=== PATIENT | female | born 1945 | race Caucasian/White ===

== ENCOUNTER → 2016-08-15 | Outpatient (CLI) | payer MEDICARE, BC ==
[~2016-08-15] MED LIST: AMLO5TAB4 PO; AMOX500C2 PO; ASPI-999 PO; CLON0.1T PO; INSU100V6 SQ; LEVO75TA PO; LOSA100T28 PO; MAG30ORA2 PO; METF500T4 PO; OMEG500C PO; OMEP40CA36 PO; POTA20TA15 PO; RED600CA2 PO; ROPI1TAB2 PO; SUCR1ORA5 PO; ZOLP10TA PO
--- NOTE | 2016-08-15 13:42 | Diagnostic Imaging Report ---
Bilateral screening mammogram. The current study was also evaluated with a Computer Aided Detection (CAD) system. INDICATION: Screening. No current complaints stated on the questionnaire. COMPARISON: 07/09/15 FINDINGS: The breasts are composed of scattered fibroglandular densities. Scattered benign-appearing calcifications are noted. There is a stable circumscribed nodule in the central aspect of the left breast previously demonstrated to be a simple cyst on ultrasound. Allowing for technique and positional differences, no suspicious change is seen. IMPRESSION: No significant change. ACR BI-RADS Category 2: Benign findings. Result letter will be mailed to the patient. Note: At least 10% of breast cancer is not imaged by mammography. Dictated by: Dictated on workstation # [id number]
== END | disposition home or self-care (01) ==
LOC: RAD 09:37
PROVIDERS: ATTEND Physician Assistant Medical
DX: Z12.31 Encounter for screening mammogram for malignant neoplasm of breast (principal)
CPT/HCPCS: 77067

== ENCOUNTER → 2019-01-16 | Outpatient (CLI) | payer MEDICARE, BC ==
[~2019-01-16] MED LIST changes: -LOSA100T28 PO; +LOSA100T57 PO; +METF-397 PO; -METF500T4 PO
== END ==
LOC: CARD 13:18
PROVIDERS: ATTEND Internal Medicine Cardiovascular Disease
DX: I25.10 Atherosclerotic heart disease of native coronary artery without angina pectoris (principal); E78.2 Mixed hyperlipidemia; I10 Essential (primary) hypertension; E11.9 Type 2 diabetes mellitus without complications
CPT/HCPCS: 93306

== ENCOUNTER → 2019-01-21 | Outpatient (CLI) | payer MEDICARE, BC ==
[~2019-01-21] VITALS: Ht 152 cm; Wt 73.0 kg
[~2019-01-21] MED LIST changes: +CATHETER FLUSH 10 ML SYR IV PRN; +REGADENOSON 0.4 MG/5 ML SYR (LEXISCAN) IV ONE; +meTOprolol 5 MG/5 ML (LOPRESSOR) VIAL IV ONE; +meTOprolol 5 MG/5 ML (LOPRESSOR) VIAL ONE
[2019-01-21 09:19] VITALS: BP 186/68
--- NOTE | 2019-01-21 12:25 | STRESS TEST ---
DATE OF SERVICE: LEXISCAN MYOVIEW STRESS TEST REPORT REFERRING PHYSICIAN: TAMMY Nassar, [facility]. Baseline heart rate is 109. Baseline blood pressure is 186/68. Baseline EKG is sinus rhythm with occasional PVCs. In summary, the patient received 10.84 mCi of technetium-99 Myoview and the resting images were obtained. Then, the patient received 0.4 mg of Lexiscan followed by 30.8 mCi of technetium-99 Myoview. Throughout the test, there were no EKG changes. The resting and stress images were reviewed and compared in the short axis, horizontal long axis, and vertical long axis views. Review of the images showed decreased uptake involving the mid to apical inferior wall and inferolateral wall with mild reversibility. SSS is 5, SDS 3, TID value 1.2. On the gated images, the left ventricle appeared to be normal size with normal contractility. Calculated ejection fraction 66%. CONCLUSION: 1. The patient tolerated Lexiscan well. 2. Reversible ischemia involving the mid to apical inferior wall and inferolateral wall. 3. Transient ischemic dilatation with TID value 1.2. 4. Normal left ventricular size with normal contractility. Calculated ejection fraction 66%. Job ID: [id number] DocumentID: [id number] Dictated Date: 01/21/2019 11:47:24 Salvage Cutter Date: 01/21/2019 12:25:09 Dictated By: MARGRET SIEGEL MD
== END ==
LOC: CARD 07:22
PROVIDERS: ATTEND Internal Medicine Cardiovascular Disease
DX: I25.10 Atherosclerotic heart disease of native coronary artery without angina pectoris (principal); I25.9 Chronic ischemic heart disease, unspecified; I10 Essential (primary) hypertension; E11.9 Type 2 diabetes mellitus without complications; E78.2 Mixed hyperlipidemia
CPT/HCPCS: 78452; 93017

== ENCOUNTER 2019-02-06 06:46 | Day surgery (SDC) | payer MEDICARE, BC ==
[2019-02-06] VITALS (9 sets, daily range): BP systolic 114–142; BP diastolic 57–76
[~2019-02-06] VITALS: Ht 152 cm; Wt 161.0 kg
[~2019-02-06 06:46] MED LIST changes: -CATHETER FLUSH 10 ML SYR IV PRN; -REGADENOSON 0.4 MG/5 ML SYR (LEXISCAN) IV ONE; -meTOprolol 5 MG/5 ML (LOPRESSOR) VIAL IV ONE; -meTOprolol 5 MG/5 ML (LOPRESSOR) VIAL ONE
[2019-02-06] MEDS ORDERED: LIDOCAINE 1% INJ 20 ML 20 ML VIAL ONE (06:53)
[2019-02-06] MEDS ORDERED: HEParin (CATH LAB) 2,000 ML IV ONE (06:53)
[2019-02-06] MEDS ORDERED: NS IV 1000 ML 1,000 ML IV SCH ×2 (07:00→09:37)
[2019-02-06 07:18] LABS: HEMOGLOBIN 12.6 G/DL (11.5-16.0); MEAN PLATELET VOLUME 13.1 FL (7.4-10.4); RED CELL DISTRIBUTION WIDTH 15.6 % (10.0-14.5); WHITE BLOOD COUNT 8.9 10^3/uL (4.3-11.0)
[2019-02-06 07:19] LABS: BILIRUBIN,URINE NEGATIVE (NEGATIVE); CLARITY,URINE CLEAR; COLOR,URINE YELLOW; GLUCOSE, URINE (UA) NEGATIVE (NEGATIVE); KETONES,URINE NEGATIVE (NEGATIVE); LEUKOCYTE ESTERASE ,URINE TRACE (NEGATIVE); NITRITE,URINE NEGATIVE (NEGATIVE); PH,URINE 5.5 (5-9); PROTEIN,URINE NEGATIVE (NEGATIVE)
[2019-02-06 07:31] LABS: PROTHROMBIN TIME PATIENT 13.6 SEC (12.2-14.7)
[2019-02-06 07:33] LABS: BACTERIA,URINE FEW /HPF
[2019-02-06 07:35] LABS: BUN/CREATININE RATIO 13; CARBON DIOXIDE 20 MMOL/L (21-32); CHLORIDE 108 MMOL/L (98-107); CREATININE SERUM 1.09 MG/DL (0.60-1.30); GFR ESTIMATED 49; POTASSIUM 3.8 MMOL/L (3.6-5.0); SODIUM 143 MMOL/L (135-145)
[2019-02-06 07:36] LABS: ALANINE AMINOTRANSFERASE 18 U/L (0-55); ALBUMIN 4.7 GM/DL (3.2-4.5); ALKALINE PHOSPHATASE 95 U/L (40-136); BILIRUBIN,TOTAL 0.6 MG/DL (0.1-1.0); CALCIUM 10.6 MG/DL (8.5-10.1); CHOLESTEROL 131 MG/DL (< 200); GLUCOSE 173 MG/DL (70-105); HDL CHOLESTEROL 34 MG/DL (40-60); TOTAL PROTEIN 8.1 GM/DL (6.4-8.2); TRIGLYCERIDES 178 MG/DL (<150); VLDL CHOLESTEROL 36 MG/DL (5-40)
--- NOTE | 2019-02-06 07:48 | Cardiac Procedure Note-CS/ASA ---
Pre-Procedure Note Pre-Op Procedure Note H&P Reviewed The H&P was reviewed, patient examined and no changes noted. Date H&P Reviewed: Feb 06, 2019 Time H&P Reviewed: 07:48 Conscious Sedation Pre-Proced Time 07:48 ASA Score 3 For ASA 3 and 4: Consider anesthesia and medical clearance. Also, for patients with a history of failed moderate sedation consider anesthesia. Airway Lungs Heart ASA score ASA 1: a normal healthy patient ASA 2: a patient with a mild systemic disease (mid diabetes, controlled hypertension, obesity x ASA 3: a patient with a severe systemic disease that limits activity (angina, COPD, prior Myocardial infarction) ASA 4: a patient with an incapacitating disease that is a constant threat to life (CHF, renal failure) ASA 5: a moribund patient not expected to survive 24 hrs. (ruptured aneurysm) ASA 6: a declared brain- patient whose organs are being harvested. For emergent operations, add the letter E after the classification Mallampati Classification Grade 3 Sedation Plan Analgesia, Amnesia, Plan communicated to team members, Discussed options with patient/fam, Discussed risks with patient/fam The patient is an appropriate candidate to undergo the planned procedure, sedation, and anesthesia. The patient immediately re-assessed prior to indication. MARGRET SIEGEL MD Feb 06, 2019 07:48 POS
[2019-02-06] MEDS ORDERED: RANI-324 PO (08:07)
[2019-02-06] MEDS ORDERED: ATOR10TA PO (08:07)
[2019-02-06] MEDS ORDERED: CLON0.1T PO (08:07)
[2019-02-06] MEDS ORDERED: NF-OLOP5ML OU (08:12)
[2019-02-06] MEDS ORDERED: LOSA100T57 PO (08:14)
[2019-02-06] MEDS ORDERED: AMLO10TA7 PO (08:14)
[2019-02-06] MEDS ORDERED: METO50TA15 PO ×2 (08:14)
--- NOTE | 2019-02-06 08:16 | Diagnostic Imaging Report ---
INDICATION: History of coronary disease, hypertension, diabetes. Evaluation prior to heart catheterization. TECHNIQUE: Single view chest 7:45 AM. CORRELATION STUDY: 01/21/2015 FINDINGS: Heart size upper limits normal. Vasculature within normal limits. The lungs are clear with no consolidating infiltrate. There is no significant effusion or pneumothorax. IMPRESSION: 1. Stable, borderline heart size. Negative for acute abnormality of the chest. Dictated by: Dictated on workstation # [id number]
[2019-02-06] MEDS ORDERED: CALC-880 PO (08:18)
[2019-02-06] MEDS ORDERED: MIDAZOLAM 5 MG/5 ML (VERSED) VIAL ONE (08:43)
[2019-02-06] MEDS ORDERED: fentaNYL INJECTION 100 MCG/2 ML AMP ONE ×2 (08:43→09:10)
[2019-02-06] MEDS ORDERED: MIDAZOLAM 2 MG/2 ML (VERSED) VIAL ONE (09:10)
[2019-02-06] MEDS ORDERED: TIZA4TAB4 PO (09:11)
[2019-02-06] MEDS ORDERED: ADENOSINE 3 MG/1 ML (ADENOSCAN) 30ML VIAL IV ONE (09:15)
[2019-02-06] MEDS ORDERED: HEParin 1000 UNIT/ML (10ML VIAL) FOR BOLUS ONE (09:15)
--- NOTE | 2019-02-06 09:16 | NUR ---
SPOKE WITH PT WELL CALLING [facility] AND [facility] MAIL ORDER TO COMPELTE THE MED REC. THE PT DID NOT HAVE HER MEDS AND HAD AN OLDER MED LIST, SHE WAS UNSURE OF HER MEDICATIONS. I COMPLIED THE INFORMATION WITH WHAT [facility] AND [facility] HAS ON FILE TO COMPLETE THE MED REC ACCURATELY POSSIBLE. LANTUS: RX FROM [facility] SAYS " 15 UNITS BID" HOWEVER THE PT SAYS SHE TAKES 10 UNITS BID. METOPROLOL TART: RX FROM [facility] SAYS " 1 TAB TID" HOWEVER THEN PT TAKES 2 AM AND 1 HS PT HAS CLONIDINE ON HER MED LIST, SHE SAYS SHE TAKES IT PRN WHEN HER BLOOD PRESSURE GETS TO HIGH. NEITHER OF HER PHARMACIES HAVE FILLED THIS IN THE LAST YEAR, FOR THAT REASON I HAVE LEFT IT OFF THE MED REC. PT ALSO HAS RED YEAST RICE AND FISH OIL LISTED, HOWEVER SHE SAID SHE HAS NOT TAKEN THESE IN A COUPLE MONTHS- DUE TO THAT I HAVE THEM OFF THE MED REC. SHE SAYS SHE NO LONGER TAKES ROPINIROLE THE FOLLOWING ARE FILL DATES FROM [facility]: 08-28-2018 OLOPATADINE DROPS #1 BOTTLE 11-12-2018 ATORVASTATIN #90/90DS 11-27-2018 METOPROLOL TART #270/90DS 12-10-2018 LEVOTHYROXINE #90/960DS 12-10-2018 POTASSIUM #90/90DS 01-15-2019 AMLODIPINE #90/90DS 01-15-2019 LOSARTAN #90/90DS 01-17-2019 LATNUS VIAL #3/84DS 02-05-2019 METFORMIN #180/90DS 11-23-2018 TIZANIDINE #20 (THIS WAS FILLED AT [facility]) OTC MEDS: ASPIRIN RANITIDINE
[2019-02-06] MEDS ORDERED: METF-397 PO (09:42)
--- NOTE | 2019-02-06 09:43 | Discharge Inst-Post CATH ---
Discharge Inst-CATH/EP Problems Reviewed?: Yes Post Cardiac Cath/EP D/C Inst Follow Up/Plan Hold metformin for [address] SIEGEL's office in 2-4 weeks <b>CARDIAC CATH/EP PROCEDURE DISCHARGE INSTRUCTIONS</b> ACTIVITY * Go Home directly and rest. * Limit activity of the leg (or wrist if it was used) for 7 days including aerobics, swimming, jogging, bicycling, etc. * Restrict stair-climbing for 7 days if possible, if not, climb up with your non-cath leg, then bring together on the same step. * Avoid lifting, pushing, pulling or excessive movement of the affected extremity for 7 days. * Customary sexual activity may be resumed after 2 days-use caution not to use a position that strains or causes pain to the affected extremity. * No driving for 24 hours. * NO SMOKING. * Avoid straining for bowel movements for 7 days. * Gentle walking on level ground is allowed. * Returning to work will depend on the type of procedure and the results. Your doctor will discuss this with you. CALL YOUR DOCTOR FOR ANY OF THE FOLLOWING: *If bleeding from the puncture site occurs- Apply gentle pressure to site with clean cloth and call your doctor or EMS. * If a knot or lump forms under the skin, increases in size, or causes pain. * If bruising appears to be worsening or moving further down your leg instead of disappearing. * Temperature above 101 F. CARE OF YOUR GROIN INCISION; * Bruising or purple discoloration of the skin near the puncture site is common. * You may shower only, no bathtub bathing for 5 days. Be careful to avoid slipping as your leg may feel stiff. * If a closure device was used on your femoral artery, please see the attached guide regarding care of the device and your leg. * Leave dressing on FOR 24 hours. CARE OF YOUR WRIST INCISION; * Bruising or purple discoloration of the skin near the puncture site is common. * You may shower. * DO NOT submerge wrist. * Leave dressing on FOR 24 hours. MARGRET SIEGEL MD Feb 06, 2019 09:43 POS
[2019-02-06] MEDS ORDERED: PATIENT MAY USE OWN MEDS, ALL PO SCH (09:45)
--- NOTE | 2019-02-06 09:48 | Cardiac Cath Report ---
Cardiac Cath Report Physician (s)/Staff Cytotechnologist (s) Physician MARGRET SEIGEL MD Pre-Procedure Diagnosis Pre-Procedure Diagnosis: Coronary artery disease Post-Procedure Note Procedure Start Date: Feb 06, 2019 Name of Procedure: Left heart catheterization FFR to the LAD Findings/Procedure Note PROCEDURE NOTE: 73-year-old lady with history of diabetes mellitus, hypertension, hyperlipidemia, had an abnormal stress test, she was scheduled for cardiac catheterization possible PTCA. After explaining the procedure to the patient, all pros and cons were explained, all questions were answered. The patient signed the consent and then she was placed on the cardiac catheterization laboratory. Groin was prepped SL fashion local anesthesia was used. Sheath placed in the Right femoral artery. Kings right and left catheter were used to access the coronary system. Pigtail was used to access the left ventricular cavity. Left ventriculogram was not done Patient was given 3000 units of heparin, FL guide was advanced and left coronary system, had the lesion appeared to be 60-70 percent. FFR was measured at baseline and it was 0.92, given adenosine challenge over 2 minutes FFR was 0.81 at the end. Wire was removed, At the end of the procedure the sheath was removed. Closure device was used FINDINGS: Hemodynamics LV 91/22, end-diastolic pressure of 22 Aorta 105/58 mean of 52 ANATOMY: Left Main is free of obstructive disease Left Anterior Descending is small to moderate in size, 60-70 percent stenosis at the mid LAD, FFR was 0.81 after adenosine challenge, the lesion is deemed to be intermediate Left Circumflex is moderate in size with no obstructive disease Right Coronory Artery is dominant artery with moderate disease LV Gram was not done, pressure was measured CONCLUSION: 1. Borderline stenosis at the mid LAD 60-70 percent, FFR is 0.81 after rosio nosine challenge, due to the fact that the artery is about 2-2.25 mm in diameter I decided to continue with conservative management 2. Otherwise mild coronary artery disease 3. Elevated left ventricular end-diastolic pressure DISCUSSION AND RECOMMENDATION: continue to maximize medical therapy no intervention is needed Anesthesia Type: Conscious Sedation Estimated blood loss (mL): 15 ml Contrast Amount: 90 ml Total Radiation Dose: 678 mGy Post-Procedure Diagnosis Post-operative diagnosis: Coronary artery disease Hypertension Hyperlipidemia Diabetes mellitus MARGRET SIEGEL MD Feb 06, 2019 09:48 POS
== END 2019-02-06 14:45 | disposition home or self-care (01) ==
LOC: CATH 06:46
PROVIDERS: ATTEND Internal Medicine Cardiovascular Disease
DX: I25.10 Atherosclerotic heart disease of native coronary artery without angina pectoris (principal); I10 Essential (primary) hypertension; E11.9 Type 2 diabetes mellitus without complications; E78.2 Mixed hyperlipidemia; E66.9 Obesity, unspecified; I65.29 Occlusion and stenosis of unspecified carotid artery; Z88.5 Allergy status to narcotic agent; Z91.048 Other nonmedicinal substance allergy status; Z79.84 Long term (current) use of oral hypoglycemic drugs; Z79.82 Long term (current) use of aspirin; Z79.899 Other long term (current) drug therapy; Z87.891 Personal history of nicotine dependence; Z68.32 Body mass index [BMI] 32.0-32.9, adult; Z80.9 Family history of malignant neoplasm, unspecified; Z83.3 Family history of diabetes mellitus; Z82.49 Family history of ischemic heart disease and other diseases of the circulatory system
CPT/HCPCS: 36415; 71045; 80053; 80061; 81000; 85027; 85347; 85610; 85730; 87077; 87081; 87088; 93458

== ENCOUNTER 2019-03-02 07:25 | Observation (INO) | payer MEDICARE, BC ==
[~2019-03-02] VITALS: Ht 152.4 cm; Wt 72.0 kg
[~2019-03-02 07:25] MED LIST changes: +AMLO10TA7 PO; +ATOR10TA PO; +CALC-880 PO; +METO50TA15 PO; +NF-OLOP5ML OU; +RANI-324 PO; +TIZA4TAB4 PO
[2019-03-02] MEDS ORDERED: ASPIRIN 81 MG CHEW (CHILDREN'S ASA) PO ONE (07:45)
--- NOTE | 2019-03-02 07:49 | ED Chest Pain ---
General Stated Complaint: CHEST PAIN Source: patient, family Exam Limitations: no limitations History of Present Illness Date Seen by Provider: Mar 02, 2019 Time Seen by Provider: 07:32 Initial Comments Patient resents to ER by private conveyance with significant other and chief complaint of chest pain that is intermittently been going on since the , 6 days ago. Prior to that she had had a routine stress test done given her history of risk factors of hypertension, hyperlipidemia and diabetes. She has no prior history of coronary disease or stents. Her stress test demonstrated some abnormal findings and she was given a heart catheter last week by Dr. Gray which she says they did not put a stent in her. She says this chest pain woke her up from sleep about 3:00 in the morning and has not gone away. It's in her epigastric region and across the top of her chest radiating from left to right and towards her back. She says it feels like burning. She has a history of acid reflux. She did not take anything for it but she has taken her morning meds which include 81 mg of aspirin. She is not on blood thinner. No history of COPD, asthma, coughing, fevers or chills. No pain on deep inspiration. Allergies and Home Medications Allergies Coded Allergies: codeine (Unverified Allergy, Unknown, 01/21/15) Uncoded Allergies: TAPE (Adverse Reaction, Unknown, 01/21/15) Home Medications Amlodipine Besylate 10 Mg Tablet, 10 MG PO DAILY, (Reported) Aspirin 81 Mg Tab.chew, 81 MG PO DAILY, (Reported) Atorvastatin Calcium 10 Mg Tablet, 10 MG PO DAILY, (Reported) Calcium Carbonate/Vitamin D3 1 Each Tablet, 1 EACH PO DAILY, (Reported) Insulin Glargine,Hum.rec.anlog 100 Unit/1 Ml Vial, 10 UNIT SQ BID, (Reported) Levothyroxine Sodium 75 Mcg Tablet, 75 MCG PO DAILY, (Reported) Losartan Potassium 100 Mg Tablet, 100 MG PO DAILY, (Reported) Metformin HCl 500 Mg Tablet, 500 MG PO BID hold metformin for 48 hours Prescribed by: MARGRET GRAY on 02/06/19 0942 Metoprolol Tartrate 50 Mg Tablet, 100 MG PO DAILY, (Reported) TAKES 2 (50MG) TABS TO EQUAL 100MG Metoprolol Tartrate 50 Mg Tablet, 50 MG PO HS, (Reported) Olopatadine 5 Ml Drops, 1 DROP OU DAILY, (Reported) Potassium Chloride 20 Meq Tab.er.prt, 20 MEQ PO DAILY, (Reported) Ranitidine HCl 75 Mg Tablet, 75 MG PO DAILY PRN for HEARTBURN, (Reported) Tizanidine HCl 4 Mg Tablet, 4 MG PO Q8H PRN for MUSCLE SPASMS, (Reported) Patient Home Medication List Home Medication List Reviewed: Yes Review of Systems Review of Systems Constitutional: No chills, No dizziness, No malaise EENTM: No Blurred Vision, No Double Vision Respiratory: Denies Cough, Denies Shortness of Air Cardiovascular: Denies Chest Pain, Denies Edema Gastrointestinal: Denies Constipated, Denies Diarrhea, Denies Nausea Genitourinary: Denies Burning, Denies Discharge Musculoskeletal: No back pain, No joint pain Skin: No dryness, No lesions Psychiatric/Neurological: Denies Depressed, Denies Headache, Denies Numbness All Other Systems Reviewed Negative Unless Noted: Yes Past Ldbcbov-Scmrib-Waqhpq Hx Patient Social History Alcohol Use: Denies Use Recreational Drug Use: No Smoking Status: Never a Smoker Recent Foreign Travel: No Contact w/Someone Who Travel: No Immunizations Up To Date Date of Pneumonia Vaccine: Dec 07, 2016 Past Medical History Adenoidectomy, Appendectomy, Gallbladder, Hysterectomy, Oophorectomy, Orthopedic, Tonsillectomy Respiratory: Yes Pneumonia Currently Using CPAP: No Currently Using BIPAP: No Cardiac: Yes (CAROTID DISEASE, SVT) Chronic Edema/Swelling, High Cholesterol, Hypertension Neurological: Yes Neuropathy, Stroke TEAM DRIVER History: Hysterectomy Genitourinary: Yes Gastrointestinal: Yes Gastroesophageal Reflux, Irritable Bowel Arthritis, Rheumatoid Arthritis, Chronic Back Pain Hypothyroidsim, Diabetes, Non-Insulin dep Cancer: No Sleep Difficulties Blood Disorders: No Physical Exam Vital Signs Vital Signs - First Documented 03/02/19 07:25 Pulse 60 Resp 18 B/P (MAP) 145/90 (108) Pulse Ox 96 O2 Delivery Room Air Capillary Refill : Height, Weight, BMI Height: 5'0" Weight: 146lbs. 6oz. 66.255606hk; 69.68 BMI Method:Stated General Appearance: No Apparent Distress, WD/WN, Anxious HEENT: PERRL/EOMI, Pharynx Normal, Moist Mucous Membranes Neck: Full Range of Motion, Normal Inspection Respiratory: Lungs Clear, Normal Breath Sounds, No Accessory Muscle Use, No Respiratory Distress Cardiovascular: Regular Rate, Rhythm, No JVD, Normal Peripheral Pulses Gastrointestinal: Normal Bowel Sounds, Non Tender, Soft Extremity: Normal Capillary Refill, Normal Inspection, Normal Range of Motion Neurologic/Psychiatric: Alert, Oriented x3 Skin: Normal Color, Warm/Dry Progress/Results/Core Measures Results/Orders Lab Results Laboratory Tests Test 03/02/19 07:50 03/02/19 10:53 Range/Units White Blood Count 9.3 4.3-11.0 10^3/uL Red Blood Count 4.87 4.35-5.85 10^6/uL Hemoglobin 13.0 11.5-16.0 G/DL Hematocrit 41 35-52 % Mean Corpuscular Volume 83 80-99 FL Mean Corpuscular Hemoglobin 27 25-34 PG Mean Corpuscular Hemoglobin Concent 32 32-36 G/DL Red Cell Distribution Width 15.2 H 10.0-14.5 % Platelet Count 196 130-400 10^3/uL Mean Platelet Volume 13.2 H 7.4-10.4 FL Neutrophils (%) (Auto) 62 42-75 % Lymphocytes (%) (Auto) 29 12-44 % Monocytes (%) (Auto) 6 0-12 % Eosinophils (%) (Auto) 2 0-10 % Basophils (%) (Auto) 0 0-10 % Neutrophils # (Auto) 5.7 1.8-7.8 X 10^3 Lymphocytes # (Auto) 2.7 1.0-4.0 X 10^3 Monocytes # (Auto) 0.6 0.0-1.0 X 10^3 Eosinophils # (Auto) 0.2 0.0-0.3 10^3/uL Basophils # (Auto) 0.0 0.0-0.1 10^3/uL Prothrombin Time 13.1 12.2-14.7 SEC INR Comment 1.0 0.8-1.4 Activated Partial Thromboplast Time 39 H 24-35 SEC Sodium Level 142 135-145 MMOL/L Potassium Level 4.2 3.6-5.0 MMOL/L Chloride Level 106 98-107 MMOL/L Carbon Dioxide Level 22 21-32 MMOL/L Anion Gap 14 5-14 MMOL/L Blood Urea Nitrogen 17 7-18 MG/DL Creatinine 1.16 0.60-1.30 MG/DL Estimat Glomerular Filtration Rate 46 BUN/Creatinine Ratio 15 Glucose Level 160 H 70-105 MG/DL Calcium Level 12.3 H 8.5-10.1 MG/DL Corrected Calcium 8.5-10.1 MG/DL Magnesium Level 1.7 1.6-2.4 MG/DL Total Bilirubin 0.5 0.1-1.0 MG/DL Aspartate Amino Transf (AST/SGOT) 21 5-34 U/L Alanine Aminotransferase (ALT/SGPT) 20 0-55 U/L Alkaline Phosphatase 94 40-136 U/L Myoglobin 37.4 10.0-92.0 NG/ML Troponin I < 0.028 < 0.028 <0.028 NG/ML B-Type Natriuretic Peptide 81.3 <100.0 PG/ML Total Protein 8.6 H 6.4-8.2 GM/DL Albumin 4.9 H 3.2-4.5 GM/DL My Orders Orders - SARAH FANG Aspirin Chewable Tablet (Baby Aspirin Ch (03/02/19 07:45) Nitroglycerin 0.4 Mg Btl 25's (Nitrostat (03/02/19 07:45) BNP (03/02/19 07:52) Troponin I (03/02/19 10:50) Lidocaine 2% Viscous 15 Ml (Xylocaine Vi (03/02/19 10:00) Famotidine Tablet (Pepcid Tablet) (03/02/19 09:56) Antacid Suspension (Mylanta Suspension (03/02/19 10:00) Medications Given in ED Current Medications Medications Dose Ordered Sig/Grabiel Route Start Time Stop Time Status Last Admin Dose Admin Al Hydrox/Mg Hydrox/Simethicone 30 ml ONCE ONCE PO 03/02/19 10:00 03/02/19 10:01 DC 03/02/19 10:12 30 ML Aspirin 243 mg ONCE ONCE PO 03/02/19 07:45 03/02/19 07:46 DC 03/02/19 07:57 243 MG Lidocaine HCl 15 ml ONCE ONCE PO 03/02/19 10:00 03/02/19 10:01 DC 03/02/19 10:12 15 ML Nitroglycerin 0.4 mg NEEDED PRN SL 03/02/19 07:45 03/02/19 10:53 0.4 MG Vital Signs/I&O 03/02/19 07:25 Pulse 60 Resp 18 B/P (MAP) 145/90 (108) Pulse Ox 96 O2 Delivery Room Air Progress Progress Note #1: Time: 07:47 Progress Note We'll give her 243 mg of aspirin in addition to the one tablet she already took. We'll trial nitroglycerin. EKG initially is unremarkable. If nitroglycerin is unhelpful we'll try a GI cocktail as this seems more likely to be GERD. Cardiac catheterization February 06, [address] Gray: Borderline stenosis in the mid LAD 60-70%. Otherwise mild coronary artery disease. Elevated left ventricular end diastolic pressure. Echocardiogram January 16, [address] Gray: EF 55-65% with grade 1 diastolic dysfunction. Progress Note #2: Time: 09:39 Progress Note Heart score 5 points. Pain came back so we gave her a GI cocktail. This helped for a while. Progress Note #3: Time: 13:00 Progress Note Her pain returned to twice what was initially she says 18 out of 10. We gave her another nitroglycerin pill and it lasted for about 15-20 minutes and then her pain has returned. Plan to put Nitropaste on her and observe her. Initial ECG Impression Date: Mar 02, 2019 Initial ECG Impression Time: 07:36 Initial ECG Rate: 62 Initial ECG Rhythm: Normal Sinus Initial ECG Intervals: Normal Initial ECG Impression: Normal, Nonspecific Changes Comment No clinically relevant ST elevation or depression normal sinus rhythm Diagnostic Imaging Diagonstic Imaging: Xray Plain Films/CT/US/NM/MRI: chest (1v) Comments NAME: DAJA RENAE [facility] REC#: [id number] PT STATUS: REG ER : 1945 PHYSICIAN: TAMIKA WAGNER MD ADMIT DATE: 03/02/19/ER Draft Date of Exam:03/02/19 CHEST 1 VIEW, AP/PA ONLY EXAM: CHEST 1 VIEW, AP/PA ONLY INDICATION: Coronary artery disease. COMPARISON: 02/06/2019. FINDINGS: Normal heart size and pulmonary vascularity. No dense consolidation, pleural effusion or pneumothorax. No acute osseous findings. No significant change. IMPRESSION: No acute cardiopulmonary findings. Dictated on workstation # [id number] Dict: 03/02/19819 Trans: 03/02/1930 [facility] [id number] Interpreted by: SEBAS LOUIS MD Electronically signed by: Reviewed: Reviewed by Me Consults : Consulting Physician: Brittney ROSAS MD Consults Notes [id number]: Discussed case with Dr. Rosas and he says given the recent cardiac catheterization and her response to nitroglycerin he would monitor her and repeat a 3 hour troponin. If it's negative we may consider sending her out if it's positive then we'll keep her. Departure Communication (Admissions) Time/Spoke to Admitting Phy: 12:50 Discussed the case with Dr. Quiñonez and he agrees to observe the patient. He agrees with nitroglycerin paste and placement in cardiac stepdown. Time/Spoke to Consulting Phy: 12:50 Discussed case lab imaging EKG with Dr. Rosas and he agrees to consult on the patient. Impression Primary Impression: Acute coronary syndrome without high troponin Disposition: ADMITTED INPATIENT Condition: Stable Admissions Decision to Admit Reason: Admit from ER (General) Decision to Admit/Date: Mar 02, 2019 Time/Decision to Admit Time: 12:45 Departure-Patient Inst. Referrals: NO,LOCAL PHYSICIAN (PCP/Family) Primary Care Physician SARAH FANG Mar 02, 2019 07:49
[2019-03-02] MEDS: NITROGLYCERIN 0.4 MG SL TABS BTL 25'S SL PRN ×2 (07:57→10:53)
[2019-03-02 08:19] LABS: BASOPHILS % (AUTO) 0 % (0-10); EOSINOPHILS # (AUTO) 0.2 10^3/uL (0.0-0.3); EOSINOPHILS % (AUTO) 2 % (0-10); HEMATOCRIT 41 % (35-52); LYMPHOCYTES # (AUTO) 2.7 X 10^3 (1.0-4.0); LYMPHOCYTES % (AUTO) 29 % (12-44); MEAN CORPUSCULAR HEMOGLOBIN 27 PG (25-34); MEAN CORPUSCULAR HGB CONC 32 G/DL (32-36); MEAN CORPUSCULAR VOLUME 83 FL (80-99); MEAN PLATELET VOLUME 13.2 FL (7.4-10.4); MONOCYTES # (AUTO) 0.6 X 10^3 (0.0-1.0); MONOCYTES % (AUTO) 6 % (0-12); NEUTROPHILS # (AUTO) 5.7 X 10^3 (1.8-7.8); NEUTROPHILS % (AUTO) 62 % (42-75); PLATELET COUNT 196 10^3/uL (130-400); RED CELL DISTRIBUTION WIDTH 15.2 % (10.0-14.5); WHITE BLOOD COUNT 9.3 10^3/uL (4.3-11.0)
[2019-03-02 08:30] LABS: PROTHROMBIN TIME PATIENT 13.1 SEC (12.2-14.7)
--- NOTE | 2019-03-02 08:30 | Diagnostic Imaging Report ---
EXAM: CHEST 1 VIEW, AP/PA ONLY INDICATION: Coronary artery disease. COMPARISON: 02/06/2019. FINDINGS: Normal heart size and pulmonary vascularity. No dense consolidation, pleural effusion or pneumothorax. No acute osseous findings. No significant change. IMPRESSION: No acute cardiopulmonary findings. Dictated by: Dictated on workstation # [id number]
[2019-03-02 08:38] LABS: ALANINE AMINOTRANSFERASE 20 U/L (0-55); ALBUMIN 4.9 GM/DL (3.2-4.5); ALKALINE PHOSPHATASE 94 U/L (40-136); BILIRUBIN,TOTAL 0.5 MG/DL (0.1-1.0); BUN/CREATININE RATIO 15; CALCIUM 12.3 MG/DL (8.5-10.1); CARBON DIOXIDE 22 MMOL/L (21-32); CHLORIDE 106 MMOL/L (98-107); CREATININE SERUM 1.16 MG/DL (0.60-1.30); GFR ESTIMATED 46; GLUCOSE 160 MG/DL (70-105); MAGNESIUM 1.7 MG/DL (1.6-2.4); POTASSIUM 4.2 MMOL/L (3.6-5.0); SODIUM 142 MMOL/L (135-145); TOTAL PROTEIN 8.6 GM/DL (6.4-8.2)
[2019-03-02] MEDS ORDERED: FAMOTIDINE 20 MG (PEPCID) TABLET PO STA (09:56)
[2019-03-02] MEDS ORDERED: LIDOCAINE 2% VISCOUS 15 ML UDC PO ONE (10:00)
[2019-03-02] MEDS ORDERED: ANTACID SUSP 30 ML UDC (MYLANTA) PO ONE (10:00)
--- NOTE | 2019-03-02 10:53 | NUR ---
2ND NITRO GIVEN PATIENT REPORTS PAIN WENT AWAY FOR AWHILE AFTER GI COCKTAIL. NOW IT BACK
--- NOTE | 2019-03-02 11:15 | NUR ---
PATIENT REPORTS THAT PAIN WAS GONE FOR A SHORT WHILE ,BUT CAME BACK.
[2019-03-02] MEDS ORDERED: NITROGLYCERIN 2% OINT 1 GM UNIT DOSE PACKET TOP ONE (13:15)
--- NOTE | 2019-03-02 14:00 | Consultation-Cardiology ---
HPI-Cardiology Cardiology Consultation: Date of Consultation 03/02/19 Date of Admission Attending Physician Elaine Quiñonez MD Admitting Physician No,Local Physician Consulting Physician Brittney ROSAS MD HPI: Time Seen by a Provider: 14:00 Chief Complaint: Chest pain This is a 73-year-old lady who has history of at least moderate one-vessel CAD. She follows with Dr. Gray. She had coronary angiography done on 02/06/2019 which showed a 60-70 percent diseased segment in the mid LAD. Borderline FFR of 0.81. She presents again with complains of intermittent chest pain since 02/24/2019. Substernal. Moderate to severe intensity. No significant radiation. No exacerbating or relieving factors. She has risk factors including hypertension, hyperlipidemia and diabetes. She denies active smoking. Family history is unremarkable. She denies any shortness of breath, palpitation, syncope or near syncope. Review of Systems-Cardiology Review of Systems Constitutional: As described under HPI; No As described under HPI, No no symptoms reported, No chills, No fever, No lightheadedness Eyes: No As described under HPI, No no symptoms reported, No blindness, No blurred vision, No contact lenses, No drainage, No decreased acuity, No foreign body sensation, No pain, No vision change Ears/Nose/Throat: No As described under HPI, No no symptoms reported, No chronic hearing loss, No ear discharge, No ear pain, No nasal drainage, No ulcerations Respiratory: No no symptoms reported; As described under HPI; No As described under HPI, No cough, No orthopnea, No shortness of breath, No SOB with excertion Cardiovascular: No no symptoms reported; As described under HPI; No As described under HPI; chest pain; No edema, No irregular heart rate, No lightheadedness, No palpitations Gastrointestinal: No no symptoms reported, No As described under HPI, No abdomen distended, No abdominal pain, No blood streaked bowels, No constipation, No diarrhea, No nausea, No vomiting, No stool coloration changes Genitourinary: No As described under HPI, No burning, No dysuria, No discharge, No frequency, No flank pain, No hematuria, No urgency : Yes : No Skin: No rash, No skin related problems, No ulcerations Psychiatric/Neurological: No anxiety, No depression, No seizure, No focal weakness, No syncope Hematologic: No bleeding abnormalities All Other Systems Reviewed Negative Unless Noted: Yes RUX-[id number]-Bqztyq Hx Patient Social History Alcohol Use: Denies Use Recreational Drug Use: No Smoking Status: Never a Smoker Former smoker/When Quit: Mar 06, 1978 Recent Foreign Travel: No Recent Infectious Disease Expo: No Hospitalization with Isolation: Denies Immunizations Up To Date Date of Pneumonia Vaccine: Dec 07, 2016 Past Medical History PMH As described under Assessment. Allergies and Home Medications Allergies Coded Allergies: codeine (Unverified Allergy, Unknown, 01/21/15) Uncoded Allergies: TAPE (Adverse Reaction, Unknown, 01/21/15) Home Medications Amlodipine Besylate 10 Mg Tablet, 10 MG PO DAILY, (Reported) Aspirin 81 Mg Tab.chew, 81 MG PO DAILY, (Reported) Atorvastatin Calcium 10 Mg Tablet, 10 MG PO DAILY, (Reported) Calcium Carbonate/Vitamin D3 1 Each Tablet, 1 EACH PO DAILY, (Reported) Insulin Glargine,Hum.rec.anlog 100 Unit/1 Ml Vial, 10 UNIT SQ BID, (Reported) Levothyroxine Sodium 75 Mcg Tablet, 75 MCG PO DAILY, (Reported) Losartan Potassium 100 Mg Tablet, 100 MG PO DAILY, (Reported) Metformin HCl 500 Mg Tablet, 500 MG PO BID hold metformin for 48 hours Prescribed by: MARGRET GRAY on 02/06/19 0942 Metoprolol Tartrate 50 Mg Tablet, 100 MG PO DAILY, (Reported) TAKES 2 (50MG) TABS TO EQUAL 100MG Metoprolol Tartrate 50 Mg Tablet, 50 MG PO HS, (Reported) Olopatadine 5 Ml Drops, 1 DROP OU DAILY, (Reported) Potassium Chloride 20 Meq Tab.er.prt, 20 MEQ PO DAILY, (Reported) Ranitidine HCl 75 Mg Tablet, 75 MG PO DAILY PRN for HEARTBURN, (Reported) Tizanidine HCl 4 Mg Tablet, 4 MG PO Q8H PRN for MUSCLE SPASMS, (Reported) Patient Home Medication List Home Medication List Reviewed: Yes Physical Exam-Cardiology Physical Exam Vital Signs/I&O 03/02/19 03/02/19 07:25 13:58 Pulse 60 66 Resp 18 18 B/P (MAP) 145/90 (108) 136/71 Pulse Ox 96 95 O2 Delivery Room Air Room Air Capillary Refill : Less Than 3 Seconds Constitutional: appears stated age, AAO x 3; No apparent distress; well- developed, well-nourished HEENT: PERRL; No discharge; hearing is well preserved, oral hygience is good; No ulceration, No xanthelasmas are seen Neck: No carotid bruit; carotid pulses are 2 + bilaterally Respiratory: chest is bilaterally symmetric Cardiovascular: regular rate-rhythm, S1 and S2 Gastrointestinal: soft, audible bowel sounds; No spleenomegaly Rectal: deferred Extremities: normal range of motion, non-tender, normal inspection; No clubbing, No cyanosis; no lower extremity edema bilateral; No significant edema Neurologic/Psychiatric: no motor/sensory deficits, alert, normal mood/affect, oriented x 3, power is 5/5 both on sides Skin: normal color; No rash, No ulcerations Data Review Labs Laboratory Tests 03/02/19 07:50: White Blood Count 9.3, Red Blood Count 4.87, Hemoglobin 13.0, Hematocrit 41, Mean Corpuscular Volume 83, Mean Corpuscular Hemoglobin 27, Mean Corpuscular Hemoglobin Concent 32, Red Cell Distribution Width 15.2H, Platelet Count 196, Mean Platelet Volume 13.2H, Neutrophils (%) (Auto) 62, Lymphocytes (%) (Auto) 29, Monocytes (%) (Auto) 6, Eosinophils (%) (Auto) 2, Basophils (%) (Auto) 0, Neutrophils # (Auto) 5.7, Lymphocytes # (Auto) 2.7, Monocytes # (Auto) 0.6, Eosinophils # (Auto) 0.2, Basophils # (Auto) 0.0, Prothrombin Time 13.1, INR Comment 1.0, Activated Partial Thromboplast Time 39H, Sodium Level 142, Potassium Level 4.2, Chloride Level 106, Carbon Dioxide Level 22, Anion Gap 14, Blood Urea Nitrogen 17, Creatinine 1.16, Estimat Glomerular Filtration Rate 46, BUN/Creatinine Ratio 15, Glucose Level 160H, Calcium Level 12.3H, Corrected Calcium , Magnesium Level 1.7, Total Bilirubin 0.5, Aspartate Amino Transf (AST/SGOT) 21, Alanine Aminotransferase (ALT/SGPT) 20, Alkaline Phosphatase 94, Myoglobin 37.4, Troponin I < 0.028, B-Type Natriuretic Peptide 81.3, Total Protein 8.6H, Albumin 4.9H 03/02/19 10:53: Troponin I < 0.028 ECG Impression ECG Initial ECG Rhythm: Normal Sinus Comment LVH, IVCD A/P-Cardiology Assessment/Admission Diagnosis Unstable angina, Diabetes, Hypertension, Hyperlipidemia, CAD Plan Unstable angina, moderate to severe mid LAD stenosis with borderline FFR on 02/06/2019. Recurrent chest pain refractory to medical therapy. Troponin 2 negative. EKG does not show any acute ST-T wave abnormalities. If he continues to have recurrent chest pain, we will consider coronary angiography and possible PCI to the mid LAD. This was discussed with the patient. Diabetes, continue outpatient medical therapy. Hypertension, Hyperlipidemia, statin therapy. CAD, aspirin, statin. Recommend echocardiogram. Thank you for your consultation. Please call me if you have any questions. Joaquin Rosas MD, FACP, FACC, FSCAI, FHRS, CCDS Interventional Cardiology Cardiac Electrophysiology Vascular Medicine and Endovascular Interventions Clinical Quality Measures AMI/AHF: ASA po Prior to arrival: Yes (81 MG ) Brittney ROSAS MD Mar 02, 2019 14:00
[2019-03-02 14:10] VITALS: BP 169/78
--- NOTE | 2019-03-02 14:10 | NUR ---
DAJA RENAE admitted to room 507-1, with an admitting diagnosis of CHEST PAIN , on 03/02/19 from ER via W/C, accompanied by STAFF.DAJA RENAE introduced to surroundings, call light, bed controls, phone, TV, temperature control, lights, meal times, smoking policy, visitor policy, side rail policy, bathrooms and showers. Patient Rights given to patient in the handbook.DAJA RENAE verbalizes understanding that [facility] is not responsible for the loss or damage to any personal effects or valuables that are kept in the patients posession during their hospitalization. The following Patient Care Plans were discussed with the PT: Discharge Planning, PAIN CONTROL,IV THERAPY, and TESTS AND PROCEDURES. DAJA RENAE verbalizes understanding of Interdisciplinary Patient Education. Patient and/or family were informed about the Rapid Response Team and its purpose.
[2019-03-02 14:37] VITALS: BP 169/78
[2019-03-02 14:51] VITALS: BP 169/78
[2019-03-02] MEDS ORDERED: CALC-140 PO (15:09)
[2019-03-02] MEDS ORDERED: ASPI-983 PO (15:11)
[2019-03-02] MEDS ORDERED: CLON0.1T14 PO (15:13)
[2019-03-02] MEDS ORDERED: ONDANSETRON 4 MG/2 ML (SDV) Z0FRAN IV PRN (15:30)
[2019-03-02] MEDS ORDERED: POLYETHYLENE GLYCOL 17 GM (MIRALAX) PACK PO PRN (15:30)
[2019-03-02] MEDS ORDERED: MELATONIN 3 MG TABLET PO PRN (15:30)
[2019-03-02] MEDS ORDERED: ONDANSETRON 4 MG (ZOFRAN) ORAL DISSOLVE TAB PO PRN (15:30)
[2019-03-02] MEDS ORDERED: ACETAMINOPHEN 325 MG TABLET PO PRN (15:30)
[2019-03-02] MEDS ORDERED: BISACODYL 10 MG SUPP (DULCOLAX) PR PRN (15:30)
[2019-03-02] MEDS ORDERED: PATIENT MAY USE OWN MEDS, ALL MC SCH (15:45)
--- NOTE | 2019-03-02 15:50 | History & Physical-Hospitalist ---
History of Present Illness HPI/Chief Complaint Glendy Chadwick is a 73-year-old female with past medical history of hypertension, type II diabetes mellitus, hyperlipidemia, coronary artery disease, presented with chest pain. She reports that she has been having the p ain for at least a week. It is a left-sided chest pain which radiates to the right side of her chest. She says that it radiates to her back as well. She says the pain is worse when she lays down. She also says the pain is reproducible with touch. She reports belching. She denies diaphoresis, nausea, vomiting, and shortness of breath. Source: patient Exam Limitations: no limitations Date Seen 03/02/19 Time Seen by a Provider: 15:15 Attending Physician Elaine Pandey MD PCP No,Local Physician Referring Physician Brittney TAYLOR MD Date of Admission Mar 02, 2019 at 13:05 Home Medications & Allergies Home Medications Reviewed patient Home Medication Reconciliation performed by pharmacy medication reconciliations central supply technician supervisor and/or nursing. Patients Allergies have been reviewed. Allergies Allergies Coded Allergies codeine (Unverified Allergy, Unknown, 01/21/15) Uncoded Allergies TAPE ( Adverse Reaction, Unknown, 01/21/15) Past Moqcfge-Mpglca-Iooohq Hx Past Med/Social Hx: Reviewed Nursing Past Med/Soc Hx Patient Social History Alcohol Use: Denies Use Recreational Drug Use: No Smoking Status: Former Smoker Former Smoker, Quit: Dec 04, 1996 Physical Abuse Screen: No Sexual Abuse: No Recent Foreign Travel: No Contact w/other who traveled: No Recent Infectious Disease Expo: No Immunizations Up To Date Date of Pneumonia Vaccine: Dec 07, 2016 Seasonal Allergies Seasonal Allergies: No Past Medical History Surgeries: Adenoidectomy, Appendectomy, Gallbladder, Hysterectomy, Ooph orectomy, Orthopedic, Tonsillectomy Currently Using CPAP: No Currently Using BIPAP: No Cardiac: Chronic Edema/Swelling, High Cholesterol, Hypertension Neurological: Neuropathy, Stroke Hysterectomy Gastrointestinal: Gastroesophageal Reflux, Irritable Bowel Musculoskeletal: Arthritis, Rheumatoid Arthritis Endocrine: Hypothyroidsim, Diabetes, Non-Insulin dep Psychosocial: Sleep Difficulties History of Blood Disorders: No Family History Abdominal aortic aneurysm SISTER (TUMOR ON BRAIN) Cardiovascular disease 19 MOTHER FH: brain tumor 19 FATHER Review of Systems Constitutional: no symptoms reported EENTM: no symptoms reported Respiratory: no symptoms reported Cardiovascular: chest pain Gastrointestinal: see HPI Genitourinary: no symptoms reported Musculoskeletal: no symptoms reported Skin: no symptoms reported Psychiatric/Neurological: No Symptoms Reported Physical Exam Physical Exam Vital Signs Vital Signs - First Documented 03/02/19 03/02/19 07:25 14:10 Temp 36.8 Pulse 60 Resp 18 B/P (MAP) 145/90 (108) Pulse Ox 96 O2 Delivery Room Air Capillary Refill : Less Than 3 Seconds Height, Weight, BMI Height: 5'0" Weight: 146lbs. 6oz. [id number]; 31.00 BMI Method:Stated General Appearance: No Apparent Distress, WD/WN HEENT: PERRL/EOMI, Pharynx Normal Neck: Normal Inspection, Supple Respiratory: Lungs Clear, Normal Breath Sounds, No Respiratory Distress, Other (chest tender to palpation) Cardiovascular: Regular Rate, Rhythm, No Edema, No Murmur Gastrointestinal: Normal Bowel Sounds, Soft, Tenderness (epigastric) Extremity: Normal Inspection, Non Tender Neurologic/Psychiatric: Alert, Oriented x3, No Motor/Sensory Deficits, Normal Mood/Affect Skin: Normal Color, Warm/Dry Lymphatic: No Adenopathy Results Results/Procedures Labs Laboratory Tests 03/02/19 07:50 Patient resulted labs reviewed. Imaging: Reviewed Imaging Report Assessment/Plan Admission Diagnosis chest pain Admission Status: Observation Assessment and Plan Chest pain Coronary artery disease Hyperlipidemia initial troponin negative Recent heart catheter with 60-70 percent mid LAD stenosis Cardiology consulted Continue to trend troponins may require coronary angiography and PCI Continue aspirin Increase statin type II diabetes mellitus Levemir Sliding scale insulin Obesity Clinically significant, no acute management needs DVT prophylaxis: Lovenox Diagnosis/Problems Diagnosis/Problems (1) Chest pain Status: Acute (2) CAD (coronary artery disease) Status: Chronic (3) T2DM (type 2 diabetes mellitus) Status: Chronic Qualifiers: Diabetes mellitus termite treater helper insulin use: with termite treater helper use (4) HLD (hyperlipidemia) Status: Chronic (5) HTN (hypertension) Status: Chronic (6) Obesity (BMI 30.0-34.9) Clinical Quality Measures AMI/AHF: ASA po Prior to arrival: Yes (81 MG ) DVT/VTE Risk/Contraindication: Risk Factor Score Per Nursin RFS Level Per Nursing on Admit: 4+=Very High ELAINE PANDEY MD Mar 02, 2019 15:50
[2019-03-02 15:56] VITALS: BP 117/69
[2019-03-02] MEDS ORDERED: OLOPATADINE 0.1 % OPHTH (PATANOL) 5 ML BTL OU PRN (16:00)
[2019-03-02] MEDS: inSUlin ASPART (NovoLOG) 1 UNIT/0.01 ML (CHARGE PER UNIT) SC SCH ×2 (16:35→20:04)
[2019-03-02] MEDS: ENOXAPARIN 40 MG/0.4 ML (LOVENOX) SYR SC SCH (16:39)
[2019-03-02 20:00] VITALS: BP 142/79
[2019-03-02] MEDS: meTOprolol TARTRATE 50 MG (LOPRESSOR) TAB PO SCH (20:05)
[2019-03-02] MEDS: cloNIDine 0.1 MG (CATAPRES) TAB PO SCH (20:06)
[2019-03-02 23:59] VITALS: BP 138/80
[2019-03-03 04:00] VITALS: BP 136/78
[2019-03-03 04:55] LABS: BASOPHILS % (AUTO) 0 % (0-10); EOSINOPHILS # (AUTO) 0.1 10^3/uL (0.0-0.3); EOSINOPHILS % (AUTO) 2 % (0-10); HEMATOCRIT 34 % (35-52); LYMPHOCYTES % (AUTO) 30 % (12-44); MEAN CORPUSCULAR HEMOGLOBIN 27 PG (25-34); MEAN CORPUSCULAR HGB CONC 32 G/DL (32-36); MEAN CORPUSCULAR VOLUME 84 FL (80-99); MEAN PLATELET VOLUME 13.2 FL (7.4-10.4); MONOCYTES # (AUTO) 0.7 X 10^3 (0.0-1.0); MONOCYTES % (AUTO) 11 % (0-12); NEUTROPHILS # (AUTO) 3.8 X 10^3 (1.8-7.8); NEUTROPHILS % (AUTO) 57 % (42-75); PLATELET COUNT 166 10^3/uL (130-400); RED CELL DISTRIBUTION WIDTH 15.5 % (10.0-14.5); WHITE BLOOD COUNT 6.6 10^3/uL (4.3-11.0)
[2019-03-03 05:06] LABS: ALBUMIN 4.1 GM/DL (3.2-4.5); BILIRUBIN,TOTAL 0.6 MG/DL (0.1-1.0); CALCIUM 10.2 MG/DL (8.5-10.1); CREATININE SERUM 1.23 MG/DL (0.60-1.30); POTASSIUM 3.8 MMOL/L (3.6-5.0); TOTAL PROTEIN 6.8 GM/DL (6.4-8.2)
[2019-03-03 05:33] VITALS: BP 108/62
[2019-03-03] MEDS: LEVOTHYROXINE 75 MCG (LEVOTHROID) TABLET PO SCH ×2 (05:42→09:41)
[2019-03-03] MEDS: inSUlin ASPART (NovoLOG) 1 UNIT/0.01 ML (CHARGE PER UNIT) SC SCH ×3 (05:42→16:00)
[2019-03-03 07:25] VITALS: BP 139/49
--- NOTE | 2019-03-03 08:07 | Diagnostic Imaging Report ---
INDICATION: Chest pain. Time of exam: 3:57 AM Correlation is made with prior chest from one day earlier. The heart size is normal. The pulmonary vascularity is unremarkable. The lungs are clear. No infiltrate, effusion or pneumothorax is detected. IMPRESSION: No acute cardiopulmonary process is detected. Dictated by: Dictated on workstation # [id number]
[2019-03-03] MEDS ORDERED: ASPIRIN E.C. 81 MG (ECOTRIN) TAB PO SCH (09:00)
[2019-03-03] MEDS ORDERED: LOSARTAN 100 MG (COZAAR) TABLET PO SCH (09:00)
[2019-03-03] MEDS ORDERED: amLODIPine 10 MG (NORVASC) TAB PO SCH (09:00)
[2019-03-03] MEDS: meTOprolol TARTRATE 50 MG (LOPRESSOR) TAB PO SCH (09:42)
[2019-03-03 11:46] VITALS: BP 136/89
--- NOTE | 2019-03-03 13:57 | Progress Note - Hospitalist ---
Subjective HPI/CC On Admission Date Seen by Provider: Mar 03, 2019 Time Seen by Provider: 07:45 Glendy Chadwick is a 73-year-old female with past medical history of hypertension, type II diabetes mellitus, hyperlipidemia, coronary artery disease, presented with chest pain. She reports that she has been having the pain for at least a week. It is a left-sided chest pain which radiates to the right side of her chest. She says that it radiates to her back as well. She says the pain is worse when she lays down. She also says the pain is reproducible with touch. She reports belching. She denies diaphoresis, nausea, vomiting, and shortness of breath. Subjective/Events-last exam Her chest pain has resolved. She denies dyspnea. She denies fevers, chills, cough, abdominal pain, nausea, vomiting. Objective Exam Vital Signs Vital Signs Date Time Temp Pulse Resp B/P (MAP) Pulse Ox O2 Delivery O2 Flow Rate FiO2 03/03/19 12:05 61 03/03/19 11:46 36.4 18 136/89 (105) 98 03/03/19 05:33 Room Air Capillary Refill : Less Than 3 SecondsLess Than 3 Seconds General Appearance: No Apparent Distress, WD/WN HEENT: PERRL/EOMI, Pharynx Normal Neck: Normal Inspection, Supple Respiratory: Lungs Clear, Normal Breath Sounds, No Respiratory Distress Cardiovascular: Regular Rate, Rhythm, No Edema, No Murmur Gastrointestinal: Normal Bowel Sounds, Non Tender, Soft Extremity: Normal Inspection, Non Tender, No Pedal Edema Neurologic/Psychiatric: Alert, Oriented x3, No Motor/Sensory Deficits, Normal Mood/Affect Skin: Normal Color, Warm/Dry Results/Procedures Lab Laboratory Tests 03/03/19 04:22 Patient resulted labs reviewed. Imaging: Reviewed Imaging Report Assessment/Plan Assessment and Plan Assess & Plan/Chief Complaint Chest pain Coronary artery disease Hyperlipidemia Recent heart cath with 60-70 percent mid LAD stenosis Cardiology consulted, appreciate assistance Planning for left heart cath today Continue ASA and statin type II diabetes mellitus Levemir Sliding scale insulin Obesity Clinically significant, no acute management needs DVT prophylaxis: Lovenox Diagnosis/Problems Diagnosis/Problems (1) Chest pain Status: Acute (2) CAD (coronary artery disease) Status: Chronic (3) T2DM (type 2 diabetes mellitus) Status: Chronic Qualifiers: Diabetes mellitus detention insulin use: with detention use (4) HLD (hyperlipidemia) Status: Chronic (5) HTN (hypertension) Status: Chronic (6) Obesity (BMI 30.0-34.9) Clinical Quality Measures AMI/AHF: ASA po Prior to arrival: Yes (81 MG ) DVT/VTE Risk/Contraindication: Risk Factor Score Per Nursin RFS Level Per Nursing on Admit: 4+=Very High FABY PANDEY MD Mar 03, 2019 13:57
[2019-03-03] MEDS ORDERED: HEParin 1000 UNIT/ML (10ML VIAL) FOR BOLUS ONE (14:09)
[2019-03-03] MEDS ORDERED: NS IV 1000 ML 3,000 ML ONE (14:09)
[2019-03-03] MEDS ORDERED: LIDOCAINE 1% INJ 20 ML 20 ML VIAL ONE ×2 (14:09→16:07)
[2019-03-03] MEDS ORDERED: fentaNYL INJECTION 100 MCG/2 ML AMP ONE ×3 (14:09→17:01)
[2019-03-03] MEDS ORDERED: MIDAZOLAM 5 MG/5 ML (VERSED) VIAL ONE ×2 (14:09→17:01)
[2019-03-03] MEDS: cloNIDine 0.1 MG (CATAPRES) TAB PO SCH (14:23)
--- NOTE | 2019-03-03 14:35 | NUR ---
TO HEART CATH PER BED.
--- NOTE | 2019-03-03 14:49 | Cardiac Procedure Note-CS/ASA ---
Pre-Procedure Note Pre-Op Procedure Note H&P Reviewed The H&P was reviewed, patient examined and no changes noted. Date H&P Reviewed: Mar 03, 2019 Time H&P Reviewed: 14:00 Conscious Sedation Pre-Proced Time 14:00 ASA Score 3 For ASA 3 and 4: Consider anesthesia and medical clearance. Also, for patients with a history of failed moderate sedation consider anesthesia. Airway Lungs Heart ASA score ASA 1: a normal healthy patient ASA 2: a patient with a mild systemic disease (mid diabetes, controlled hypertension, obesity ASA 3: a patient with a severe systemic disease that limits activity (angina, COPD, prior Myocardial infarction) ASA 4: a patient with an incapacitating disease that is a constant threat to life (CHF, renal failure) ASA 5: a moribund patient not expected to survive 24 hrs. (ruptured aneurysm) ASA 6: a declared brain- patient whose organs are being harvested. For emergent operations, add the letter E after the classification Mallampati Classification Grade 1 Sedation Plan Analgesia, Amnesia, Plan communicated to team members, Discussed options with patient/fam, Discussed risks with patient/fam The patient is an appropriate candidate to undergo the planned procedure, sedation, and anesthesia. The patient immediately re-assessed prior to indication. Brittney TAYLOR MD Mar 03, 2019 14:49
--- NOTE | 2019-03-03 14:49 | Cardiology Progress Note ---
Cardiology SOAP Progress Note Subjective: Still had chest pain overnight. Partial relief with nitroglycerin. Objective: I&O/Vital Signs 03/03/19 03/03/19 03/03/19 03/03/19 04:00 05:33 07:00 07:25 Temp 36.6 36.7 36.2 Pulse 68 58 61 53 Resp 20 20 18 B/P (MAP) 136/78 (97) 108/62 (77) 139/49 (79) Pulse Ox 98 95 O2 Delivery Room Air Room Air 03/03/19 03/03/19 11:46 12:05 Temp 36.4 Pulse 60 61 Resp 18 B/P (MAP) 136/89 (105) Pulse Ox 98 03/03/19 00:00 Intake Total 500 ml Balance 500 ml Weight (Pounds): 146 Weight (Ounces): 6 Weight (Calculated Kilograms): [id number] Constitutional: appears stated age, AAO x 3; No apparent distress; well- developed, well-nourished Respiratory: chest is bilaterally symmetric Cardiovascular: regular rate-rhythm, S1 and S2 Gastrointestional: soft, audible bowel sounds; No spleenomegaly Extremities: normal range of motion, non-tender, normal inspection; No clubbing, No cyanosis; no lower extremity edema bilateral; No significant edema Neurologic/Psychiatric: no motor/sensory deficits, alert, normal mood/affect, oriented x 3, power is 5/5 both on sides Skin: normal color; No rash, No ulcerations Results/Procedures: Labs Laboratory Tests 03/02/19 15:44: Glucometer 157H 03/02/19 16:53: Troponin I < 0.028 03/02/19 20:02: Glucometer 121H 03/02/19 22:48: Troponin I < 0.028 03/03/19 04:22: White Blood Count 6.6, Red Blood Count 4.10L, Hemoglobin 11.0L, Hematocrit 34L, Mean Corpuscular Volume 84, Mean Corpuscular Hemoglobin 27, Mean Corpuscular Hemoglobin Concent 32, Red Cell Distribution Width 15.5H, Platelet Count 166, Mean Platelet Volume 13.2H, Neutrophils (%) (Auto) 57, Lymphocytes (%) (Auto) 30, Monocytes (%) (Auto) 11, Eosinophils (%) (Auto) 2, Basophils (%) (Auto) 0, Neutrophils # (Auto) 3.8, Lymphocytes # (Auto) 2.0, Monocytes # (Auto) 0.7, Eosinophils # (Auto) 0.1, Basophils # (Auto) 0.0, Sodium Level 141, Potassium Level 3.8, Chloride Level 106, Carbon Dioxide Level 21, Anion Gap 14, Blood Urea Nitrogen 26H, Creatinine 1.23, Estimat Glomerular Filtration Rate 43, BUN/Creatinine Ratio 21, Glucose Level 103, Calcium Level 10.2H, Corrected Calci um 10.1, Total Bilirubin 0.6, Aspartate Amino Transf (AST/SGOT) 21, Alanine Aminotransferase (ALT/SGPT) 17, Alkaline Phosphatase 65, Total Protein 6.8, Albumin 4.1, Triglycerides Level 139, Cholesterol Level 92, LDL Cholesterol Direct 41, VLDL Cholesterol 28, HDL Cholesterol 30L 03/03/19 11:35: Glucometer 123H A/P: Assessment/Dx: Unstable angina, Diabetes, Hypertension, Hyperlipidemia, CAD Plan: Unstable angina, moderate to severe mid LAD stenosis with borderline FFR on 02/06/2019. Recurrent chest pain refractory to medical therapy. Troponin 2 negative. EKG does not show any acute ST-T wave abnormalities. If he continues to have recurrent chest pain, we will consider coronary angiography and possible PCI to the mid LAD. This was discussed with the patient. I discussed at length with the patient and recommended coronary angiography. All risks and complication were explained at length and informed consent was taken. Diabetes, continue outpatient medical therapy. Hypertension, Hyperlipidemia, statin therapy. CAD, aspirin, statin. Recommend echocardiogram. Thank you for your consultation. Please call me if you have any questions. Joaquin Rosas MD, FACP, FACC, FSCAI, FHRS, CCDS Interventional Cardiology Cardiac Electrophysiology Vascular Medicine and Endovascular Interventions Clinical Quality Measures AMI/AHF: ASA po Prior to arrival: Yes (81 MG ) Brittney ROSAS MD Mar 03, 2019 14:49
[2019-03-03] MEDS ORDERED: VERAPAMIL 5 MG/2 ML (CALAN) VIAL IV ONE (14:50)
[2019-03-03] MEDS ORDERED: NITRO DRIP 25000 MCG/D5W 250 ML IV ONE ×2 (14:50→16:47)
[2019-03-03] MEDS ORDERED: NS IV 1000 ML 1,000 ML IV SCH (15:15)
[2019-03-03] MEDS ORDERED: TICAGRELOR 90 MG TABLET (BRILINTA) PO ONE (15:21)
[2019-03-03] MEDS: ENOXAPARIN 40 MG/0.4 ML (LOVENOX) SYR SC SCH (15:30)
[2019-03-03] MEDS ORDERED: MIDAZOLAM 2 MG/2 ML (VERSED) VIAL ONE (15:42)
[2019-03-03] MEDS ORDERED: NS IV 1000 ML 1,000 ML ONE ×2 (16:33→17:04)
[2019-03-03] MEDS ORDERED: HEParin DRIP 25000 UNIT/500ML 500 ML IV ONE (16:47)
[2019-03-03] MEDS ORDERED: ONDANSETRON 4 MG/2 ML (SDV) Z0FRAN ONE (17:01)
--- NOTE | 2019-03-03 17:17 | Coronary Angiography & PCI ---
Coronary Angiography & PCI DATE OF PROCEDURE: 03/03/19 INDICATION: Unstable angina refractory to medical therapy. PREOPERATIVE DIAGNOSIS: Unstable angina refractory to medical therapy POSTOPERATIVE DIAGNOSIS: Proximal LAD dissection HISTORY: This is a 74-year-old lady with diabetes. She had coronary angiography 02/06/[address] Gray which showed a moderate to severe mid LAD stenosis. Stenosis severity 60-70 percent. FFR was 0.81 therefore PCI was deferred. Patient presented with prolonged episode of chest pain. She will improve with nitroglycerin. However when the nitroglycerin wears off she will start to have chest pain again. Therefore, the patient was scheduled for coronary angiography. PROCEDURES PERFORMED: 1.Coronary angiography. 2.Left heart catheterization. 3.attempted PCI to the LAD. COMPLICATIONS: Proximal LAD dissection. SPECIMENS: None. ESTIMATED BLOOD LOSS: 10 mL ANESTHESIA: Conscious sedation ANTICOAGULATION: IV heparin CONTRAST: 170 ml. FLUOROSCOPY: 34.2 minutes. FLOUROSCOPY DOSE: 1420 mgy. PROCEDURE DETAILS: The patient is a 74 female and was brought to the forestry farm laborer after informed consent was taken. All the risks and complications were explained in detail; this included the risk of bleeding, vascular damage, stroke, [place] and even . The patient was draped and prepped in the usual sterile fashion. Access was gained in the right radial artery with a 6 [place] sheath. Coronary angiography and left heart catheterization was performed with the Tensed catheter. FINDINGS: 1.Left main: Patent. 2.LAD: Moderate to severe mid LAD stenosis. Stenosis severity 70-75 percent. 3.Left circumflex artery: Luminal irregularities. 4.RCA: Mild mid RCA disease. Stenosis severity 20 percent. 5.Left heart catheterization: LV pressure 121/10/17. LVEDP 17 mmHg. Aortic pressure 106/62/79. Normal LV function with no wall motion abnormalities. No gradient across the aortic valve. RECOMMENDATIONS: 1. PCI to the mid LAD is recommended. INTERVENTION DETAILS: JL 3.5 guide catheter, whisper medium support guidewire, IV heparin for anticoagulation. Patient was given dual antiplatelet therapy before the PCI. The lesion in the mid LAD was crossed with the whisper wire. However a Xience Verna 2.25 x 15mm stent would not cross the proximal LAD. There were significant tortuosity in the mid and proximal LAD. Therefore we took a BMW wire and crossed the lesion. However we were not able to get the stent to the mid LAD. We then took a guide liner and placed it in the proximal LAD however we were still not able to cross the stent. At this point in time we decided to go via femoral approach. Therefore the wire and the guide was taken out. We then got access in the right femoral artery with a 6 [place] sheath. An EBU 3.5 guide catheter was used. We went in with the whisper extra-support wire however we were not able to get into the mid LAD. At this point in time coronary injection showed evidence of flow limiting proximal dissection and the wire was in the false lumen. With SUZANNE 2 flow. I attempted a few times but was not able to get the wire in the true lumen. The patient complained of chest pain and there were ST segment elevation noted. Therefore I decided to send the patient for surgery. The wire and guide catheter was taken out. I called [facility] and talked to Dr. Barry who accepted the patient for a CABG with HOUGH to the mid LAD. We placed a balloon pump. IV nitroglycerin and IV heparin was started. I went and spoke to the family at length. They agreed with the plan. I spoke to the patient as well and she agrees with the plan as well. CONCLUSIONS: 1. Moderate to severe mid LAD stenosis, proximal LAD dissection with unsuccessful wiring of the true lumen. Therefore patient will be sent for CABG at [facility]. I spoke to Dr. Barry who accepted the patient for emergent CABG. 2. Intra-aortic balloon pump, IV nitroglycerin and IV heparin. Blood pressure before transfer was 131/99 mmHg. Heart rate 70 BPM. Oxygen saturation 97 percent. MD BRANDON Wood M RIZWAN MD Mar 03, 2019 17:17
--- NOTE | 2019-03-03 17:22 | Cardiology Discharge Summary ---
Diagnosis/Chief Complaint Date of Admission Mar 02, 2019 at 13:05 Date of Discharge 03/03/2019 Admission Diagnosis Unstable angina refractory to medical therapy Final/Discharge Diagnosis Unstable angina refractory to medical therapy Chief Complaint/HPI Chief Complaint/HPI This is a 73-year-old lady who has history of at least moderate one-vessel CAD. She follows with Dr. Gray. She had coronary angiography done on 02/06/2019 which showed a 60-70 percent diseased segment in the mid LAD. Borderline FFR of 0.81. She presents again with complains of intermittent chest pain since 02/24/2019. Prolonged episode of chest pain. Substernal. Moderate to severe intensity. No significant radiation. No exacerbating or relieving factors. She has risk factors including hypertension, hyperlipidemia and diabetes. She denies active smoking. Family history is unremarkable. She denies any s hortness of breath, palpitation, syncope or near syncope. Discharge Summary Procedures Coronary angiography shows moderate to severe mid LAD stenosis. 70-75 percent stenosis. Previously coronary angiography done on 02/06/2019 showed FFR was 0.81. Since the patient was having prolonged chest pain refractory to nitroglycerin, we decided to intervene on the mid LAD. However the procedure was complicated by a proximal LAD dissection. We could not advance the wire in the true lumen. Patient complain of chest pain with [address] elevation. Therefore the patient will be sent emergently for cardiac surgery. Discharge Physical Examination Intra-aortic balloon pump in place, IV nitroglycerin IV heparin infusion. Hospital Course Was the Problem List Reviewed?: Yes Unstable angina with chest pain refractory to nitroglycerin. Pending Labs Laboratory Tests 03/03/19 11:35: Glucometer 123 Discussion & Recommendations Discussion Discussed with Dr. Barry who is accepting cardiac surgeon at [facility] for emergent CABG with HOUGH to LAD. Discussed with the family who agreed with the plan. I also discussed with the patient who agreed with the plan. Home Medications Reviewed patient Home Medication Reconciliation performed by pharmacy medication reconciliations veterinary technician and/or nursing. Patients Allergies have been reviewed. Discharge Home Medications: Reviewed and agree with Discharge Medication list on patient's Discharge Instruction sheet Condition at discharge Critical. Instructions to patient/family Discussed with the patient and family Clinical Quality Measures AMI/AHF: ASA po Prior to arrival: Yes (81 MG ) DVT/VTE Risk/Contraindication: Risk Factor Score Per Nursin RFS Level Per Nursing on Admit: 4+=Very High Brittney TAYLOR MD Mar 03, 2019 17:22
--- NOTE | 2019-03-03 17:55 | NUR ---
D-I-L CALLED AND STATED SHE WOULD COORDINATOR OF LIBRARY SERVICES DAJA'S CLOTHES AND MEDICATIONS TOMORROW. LEFT CLOTHES,SHOES AND MEDICATIONS AT ICU DESK WITH NAME AND FACE SHEET IN A BELONGING'S BAG. INSTRUCTED HIGHWAY MAINTENANCE SUPERVISOR FAMILY WOULD PICK IT UP WHEN ABLE.
== END 2019-03-03 17:30 | disposition designated cancer center or children's hospital (05) ==
LOC: EDUNIT# 07:25 → ER 07:26 → CSD 13:05
PROVIDERS: ADMIT Internal Medicine; ATTEND Internal Medicine
DX: I25.119 Atherosclerotic heart disease of native coronary artery with unspecified angina pectoris (principal); I24.9 Acute ischemic heart disease, unspecified; E78.00 Pure hypercholesterolemia, unspecified; I10 Essential (primary) hypertension; E11.40 Type 2 diabetes mellitus with diabetic neuropathy, unspecified; M06.9 Rheumatoid arthritis, unspecified; G89.29 Other chronic pain; M54.9 Dorsalgia, unspecified; K21.9 Gastro-esophageal reflux disease without esophagitis; G47.9 Sleep disorder, unspecified; E78.5 Hyperlipidemia, unspecified; Z87.891 Personal history of nicotine dependence; Z88.5 Allergy status to narcotic agent; Z91.048 Other nonmedicinal substance allergy status; Z79.82 Long term (current) use of aspirin; Z79.84 Long term (current) use of oral hypoglycemic drugs; Z79.899 Other long term (current) drug therapy; Z79.4 Long term (current) use of insulin; Z90.89 Acquired absence of other organs; Z90.49 Acquired absence of other specified parts of digestive tract; Z90.710 Acquired absence of both cervix and uterus; Z82.49 Family history of ischemic heart disease and other diseases of the circulatory system
CPT/HCPCS: 33967; 36415; 71045; 80053; 80061; 82962; 83735; 83874; 83880; 84484; 85025; 85610; 85730; 93005; 93041; 93306; 93458

== ENCOUNTER → 2019-05-06 | Outpatient (CLI) | payer MEDICARE, BC ==
[~2019-05-06] MED LIST changes: +ASPI-983 PO; +CALC-140 PO; +CLON0.1T14 PO; +OMEP40CA27 PO; -OMEP40CA36 PO; +ROPI1TAB PO; -ROPI1TAB2 PO
== END ==
LOC: CARD 10:46
PROVIDERS: ATTEND Internal Medicine Cardiovascular Disease
DX: I07.1 Rheumatic tricuspid insufficiency (principal); I31.3 Pericardial effusion (noninflammatory); I25.10 Atherosclerotic heart disease of native coronary artery without angina pectoris; E78.2 Mixed hyperlipidemia; I10 Essential (primary) hypertension; E11.9 Type 2 diabetes mellitus without complications
CPT/HCPCS: 93306

== ENCOUNTER 2019-05-17 08:24 | Outpatient (RCR) | payer MEDICARE, BC | END 2019-08-11 | disposition home or self-care (01) | LOC: CR 08:24 | PROVIDERS: ATTEND Internal Medicine Cardiovascular Disease | DX: Z48.812 Encounter for surgical aftercare following surgery on the circulatory system (principal); Z95.1 Presence of aortocoronary bypass graft | CPT/HCPCS: 93798 ==

== ENCOUNTER → 2019-10-30 | Outpatient (CLI) | payer MEDICARE, BC ==
[~2019-10-30] VITALS: Ht 152 cm; Wt 71.0 kg
[~2019-10-30] MED LIST changes: +CATHETER FLUSH 10 ML SYR IV PRN; +REGADENOSON 0.4 MG/5 ML SYR (LEXISCAN) IV ONE
[2019-10-30 08:06] LABS: ALBUMIN 4.3 GM/DL (3.2-4.5); BILIRUBIN,TOTAL 0.5 MG/DL (0.1-1.0); CALCIUM 11.3 MG/DL (8.5-10.1); CREATININE SERUM 1.28 MG/DL (0.60-1.30); POTASSIUM 4.3 MMOL/L (3.6-5.0); TOTAL PROTEIN 7.8 GM/DL (6.4-8.2)
[2019-10-30 09:08] VITALS: BP 161/66
--- NOTE | 2019-10-30 14:11 | Cardiology Stress Test Report ---
Stress Test Report Date of Procedure/Referring: Date of Procedure: Oct 30, 2019 PCP Salud Villasenor Admitting Physician Jamaal Hernandez MD Indications: Coronary artery disease Baseline Heart Rate: 93 Baseline Blood Pressure: Blood Pressure Systolic: 161 Blood Pressure Diastolic: 66 Baseline Vitals Vital Signs Date Time Temp Pulse Resp B/P (MAP) Pulse Ox O2 Delivery O2 Flow Rate FiO2 10/30/19 09:08 93 161/66 (97) 95 Baseline EKG: Baseline EKG: sinus rhythm, left bundle branch block Summary After explaining the procedure to the patient, she signed a consent and then brought to the stress nuclear laboratory. Patient received 0.4 mg Lexiscan for stress test, ECG, heart rate and blood pressure were monitored continuously. Resting and stress dose of radio tracer were injected, imaging was acquired and reviewed in short axis, horizontal long axis and vertical long axis views. TID: 1.17 SSS: 16 SDS: 8 EF: 63 1. Patient tolerated Lexiscan well 2. Baseline left bundle branch block persisted during test 3. Breast attenuation with fixed defect at the apex, mild reversible ischemia at the mid to apical anterior wall and inferoapical segment 4. Normal left ventricular size, EF 63 percent MARGRET SIEGEL MD Oct 30, 2019 14:11
== END ==
LOC: CARD 07:30
PROVIDERS: ATTEND Physician Assistant
DX: I25.10 Atherosclerotic heart disease of native coronary artery without angina pectoris (principal); I65.29 Occlusion and stenosis of unspecified carotid artery; E11.9 Type 2 diabetes mellitus without complications; I10 Essential (primary) hypertension; E78.2 Mixed hyperlipidemia; N64.89 Other specified disorders of breast; I25.89 Other forms of chronic ischemic heart disease
CPT/HCPCS: 78452; 80053; 80061; 93017; A9502; 36415

== ENCOUNTER 2019-11-06 11:00 | Day surgery (SDC) | payer MEDICARE, BC ==
[2019-11-06] VITALS (11 sets, daily range): BP systolic 107–154; BP diastolic 50–80
[~2019-11-06] VITALS: Ht 152 cm; Wt 71.0 kg
[2019-11-06 09:06] LABS: HEMOGLOBIN 13.2 G/DL (11.5-16.0); MEAN PLATELET VOLUME 12.6 FL (7.4-10.4); RED CELL DISTRIBUTION WIDTH 14.2 % (10.0-14.5); WHITE BLOOD COUNT 9.1 10^3/uL (4.3-11.0)
[2019-11-06 09:23] LABS: PROTHROMBIN TIME PATIENT 13.5 SEC (12.2-14.7)
[2019-11-06 09:28] LABS: ALBUMIN 4.5 GM/DL (3.2-4.5); BILIRUBIN,TOTAL 0.6 MG/DL (0.1-1.0); CALCIUM 11.1 MG/DL (8.5-10.1); CREATININE SERUM 1.31 MG/DL (0.60-1.30); POTASSIUM 4.1 MMOL/L (3.6-5.0); TOTAL PROTEIN 8.4 GM/DL (6.4-8.2)
--- NOTE | 2019-11-06 09:32 | Diagnostic Imaging Report ---
INDICATION: Heart disease, chest pain. Comparison made with prior examination from 03/03/2019. FINDINGS: Heart size is normal. There has been a previous median sternotomy and coronary bypass graft. There is no pleural effusion or pneumothorax. The mediastinum is unremarkable. IMPRESSION: No acute cardiopulmonary abnormality. Dictated by: Dictated on workstation # [id number]
--- NOTE | 2019-11-06 10:11 | NUR ---
I SPOKE WITH PATIENT AND WENT THROUGH THE MEDS THAT THE PATIENT DONTRELL FROM HOME TO COMPLETE THIS MED REC METOPROLOL 50MG LAST FILLED 09/01/2019 #90 90 DS LEVOTHYROXINE 100MCG LAST FILLED 11/04/2019 #90 90DS FUROSEMIDE 20MG LAST FILLED 08/21/2019 #90 90DS PRADAXA 150MG LAST FILLED 10/21/2019 #90 90DS JAKAFI 10MG LAST FILLED 09/26/2019 #60 30DS OTC: ASPIRIN 81MG VITAMIN D3 25MCG
[~2019-11-06 11:00] MED LIST changes: +ASPI-1238 PO; -ASPI-983 PO; +ATOR40TA70 PO; +BENZ100C18 PO; +CALC-794 PO; -CATHETER FLUSH 10 ML SYR IV PRN; +HEParin (CATH LAB) 2,000 ML IV ONE; +LIDOCAINE 1% INJ 20 ML 20 ML VIAL ONE; +MIDAZOLAM 5 MG/5 ML (VERSED) VIAL ONE; +NS IV 1000 ML 1,000 ML IV SCH; +NS IV 1000 ML 1,000 ML ONE; +OMEG-160 PO; -REGADENOSON 0.4 MG/5 ML SYR (LEXISCAN) IV ONE; +fentaNYL INJECTION 100 MCG/2 ML AMP ONE
[2019-11-06] MEDS ORDERED: NS IV 1000 ML 1,000 ML IV SCH (11:46)
--- NOTE | 2019-11-06 11:46 | Cardiac Procedure Note-CS/ASA ---
Pre-Procedure Note Pre-Op Procedure Note H&P Reviewed The H&P was reviewed, patient examined and no changes noted. Date H&P Reviewed: Nov 06, 2019 Time H&P Reviewed: 10:00 Conscious Sedation Pre-Proced Time 10:00 ASA Score 3 For ASA 3 and 4: Consider anesthesia and medical clearance. Also, for patients with a history of failed moderate sedation consider anesthesia. Airway Lungs Heart ASA score ASA 1: a normal healthy patient ASA 2: a patient with a mild systemic disease (mid diabetes, controlled hypertension, obesity x ASA 3: a patient with a severe systemic disease that limits activity (angina, COPD, prior Myocardial infarction) ASA 4: a patient with an incapacitating disease that is a constant threat to life (CHF, renal failure) ASA 5: a moribund patient not expected to survive 24 hrs. (ruptured aneurysm) ASA 6: a declared brain- patient whose organs are being harvested. For emergent operations, add the letter E after the classification Mallampati Classification Grade 3 Sedation Plan Analgesia, Amnesia, Plan communicated to team members, Discussed options with patient/fam, Discussed risks with patient/fam The patient is an appropriate candidate to undergo the planned procedure, sedation, and anesthesia. The patient immediately re-assessed prior to indication. MARGRET SIEGEL MD Nov 06, 2019 11:46 am
[2019-11-06] MEDS ORDERED: METF-397 PO (11:48)
--- NOTE | 2019-11-06 11:49 | Discharge Inst-Post CATH ---
Discharge Inst-CATH/EP Problems Reviewed?: Yes Post Cardiac Cath/EP D/C Inst Follow Up/Plan Appointment with Dr. Gray's office in 4 weeks <b>CARDIAC CATH/EP PROCEDURE DISCHARGE INSTRUCTIONS</b> ACTIVITY * Go Home directly and rest. * Limit activity of the leg (or wrist if it was used) for 7 days including aerobics, swimming, jogging, bicycling, etc. * Restrict stair-climbing for 7 days if possible, if not, climb up with your non-cath leg, then bring together on the same step. * Avoid lifting, pushing, pulling or excessive movement of the affected extremity for 7 days. * Customary sexual activity may be resumed after 2 days-use caution not to use a position that strains or causes pain to the affected extremity. * No driving for 24 hours. * NO SMOKING. * Avoid straining for bowel movements for 7 days. * Gentle walking on level ground is allowed. * Returning to work will depend on the type of procedure and the results. Your doctor will discuss this with you. CALL YOUR DOCTOR FOR ANY OF THE FOLLOWING: *If bleeding from the puncture site occurs- Apply gentle pressure to site with clean cloth and call your doctor or EMS. * If a knot or lump forms under the skin, increases in size, or causes pain. * If bruising appears to be worsening or moving further down your leg instead of disappearing. * Temperature above 101 F. CARE OF YOUR GROIN INCISION; * Bruising or purple discoloration of the skin near the puncture site is common. * You may shower only, no bathtub bathing for 5 days. Be careful to avoid slipping as your leg may feel stiff. * If a closure device was used on your femoral artery, please see the attached guide regarding care of the device and your leg. * Leave dressing on FOR 24 hours. CARE OF YOUR WRIST INCISION; * Bruising or purple discoloration of the skin near the puncture site is common. * You may shower. * DO NOT submerge wrist. * Leave dressing on FOR 24 hours. MARGRET GRAY MD Nov 06, 2019 11:49 am
--- NOTE | 2019-11-06 11:55 | Cardiac Cath Report ---
Cardiac Cath Report Physician (s)/Precision Assembler Bench (s) Physician MARGRET SIEGEL MD Pre-Procedure Diagnosis Pre-Procedure Diagnosis: Coronary artery disease Post-Procedure Note Procedure Start Date: Nov 06, 2019 Name of Procedure: Left heart catheterization HOUGH angiogram Findings/Procedure Note PROCEDURE NOTE: 74-year-old lady with history of coronary artery disease, CABG 1 using HOUGH to LAD done last year. Has been having chest pain, had an abnormal stress test, scheduled for cardiac catheterization possible PTCA. After explaining the procedure to the patient, all pros and cons were explained, all questions were answered. The patient signed the consent and then she was placed on the cardiac catheterization laboratory. Groin was prepped SL fashion local anesthesia was used. Sheath placed in the right femoral artery. Kings right and left catheter were used to access the coronary system. HOUGH evaluated. Kings right catheter was advanced to the left ventricular cavity, pressure was measured no left ventricular gram was done At the end of the procedure the sheath was removed. Closure device FINDINGS: Hemodynamics LV 123/9, end-diastolic pressure of 9 Aorta 128/66 mean of 92 ANATOMY: Left Main is free of obstructive disease Left Anterior Descending is occluded distally, competitive flow through the HOUGH to the LAD filling the distal LAD was small vessel disease Left Circumflex is moderate in size with 40-50 percent stenosis in the midportion nonobstructive disease Right Coronory Artery is moderate in size with mild disease nonobstructive disease HOUGH to LAD is patent with good flow down to the distal LAD, small vessel dis ease LV Gram was not done, pressure was measured CONCLUSION: 1. Patent HOUGH to the mid LAD with good flow distally 2. Mild to moderate disease in the mid circumflex artery, mild disease in the mid right coronary artery 3. Normal left ventricular end-diastolic pressure 4. Small vessel disease noted, nonobstructive disease DISCUSSION AND RECOMMENDATION: Continue to maximize medical therapy. No intervention is needed Anesthesia Type: Conscious Sedation Estimated blood loss (mL): 25 ml Contrast Amount: 23 ml Total Radiation Dose: 259 mGy Post-Procedure Diagnosis Post-operative diagnosis: Chest pain Coronary artery disease Hypertension Hyperlipidemia MARGRET SIEGEL MD Nov 06, 2019 11:55 am
[2019-11-06] MEDS ORDERED: PATIENT MAY USE OWN MEDS, ALL PO SCH (12:00)
== END 2019-11-06 16:10 | disposition home or self-care (01) ==
LOC: CATH 11:00 → SDC 11:58 → CATH 16:10
PROVIDERS: ATTEND Internal Medicine Cardiovascular Disease
DX: I25.10 Atherosclerotic heart disease of native coronary artery without angina pectoris (principal); I10 Essential (primary) hypertension; E11.9 Type 2 diabetes mellitus without complications; E78.2 Mixed hyperlipidemia; I65.23 Occlusion and stenosis of bilateral carotid arteries; Z79.82 Long term (current) use of aspirin; Z79.84 Long term (current) use of oral hypoglycemic drugs; Z79.899 Other long term (current) drug therapy; Z91.048 Other nonmedicinal substance allergy status; Z88.5 Allergy status to narcotic agent; Z80.9 Family history of malignant neoplasm, unspecified
CPT/HCPCS: 71045; 80053; 80061; 85027; 85610; 85730; 87081; 93459; C1760; C1894; 36415

== ENCOUNTER → 2020-05-22 | Outpatient (CLI) | payer MEDICARE, BC ==
[~2020-05-22] MED LIST changes: +AMLO-251 PO; -AMLO10TA7 PO; +CLN.1T PO; -CLON0.1T PO; -HEParin (CATH LAB) 2,000 ML IV ONE; -LIDOCAINE 1% INJ 20 ML 20 ML VIAL ONE; -MIDAZOLAM 5 MG/5 ML (VERSED) VIAL ONE; -NS IV 1000 ML 1,000 ML IV SCH; -NS IV 1000 ML 1,000 ML ONE; -fentaNYL INJECTION 100 MCG/2 ML AMP ONE
== END ==
LOC: CARD 10:50
PROVIDERS: ATTEND Internal Medicine Cardiovascular Disease
DX: I11.9 Hypertensive heart disease without heart failure (principal)
CPT/HCPCS: 93306

== ENCOUNTER → 2020-08-14 | Outpatient (CLI) | payer MEDICARE, BC ==
--- NOTE | 2020-08-17 09:25 | Diagnostic Imaging Report ---
INDICATION: Routine screening. COMPARISON: 09/27/2018 and 09/21/2017. TECHNIQUE: 2D and 3D bilateral screening mammography was performed with CAD. FINDINGS: Scattered fibroglandular densities are identified bilaterally. A benign nodule in the left breast appears stable. There are scattered benign calcifications. No spiculated mass or malignant appearing microcalcifications are seen. The axillae are unremarkable. IMPRESSION: No mammographic features suspicious for malignancy are identified. ACR BI-RADS Category 2: Benign findings. Result letter will be mailed to the patient. Note: At least 10% of breast cancer is not imaged by mammography. Dictated by: Dictated on workstation # [id number]
== END ==
LOC: RAD 12:45
PROVIDERS: ATTEND Student in an Organized Health Care Education/Training Program
DX: Z12.31 Encounter for screening mammogram for malignant neoplasm of breast (principal)
CPT/HCPCS: 77063; 77067

== ENCOUNTER 2020-09-14 06:44 | Outpatient (CLI) | payer MEDICARE, BC ==
[~2020-09-14] VITALS: Ht 152.4 cm; Wt 73.6 kg
[~2020-09-14 06:44] MED LIST changes: -OMEP40CA27 PO; +OMEP40CA6 PO
[2020-09-14] MEDS ORDERED: METF-397 PO (12:47)
[2020-09-14] MEDS ORDERED: AMLO-250 PO (16:13)
== END 2020-09-14 16:16 | disposition home or self-care (01) ==
LOC: PREOP 06:44
PROVIDERS: ATTEND Specialist
DX: Z01.818 Encounter for other preprocedural examination (principal)

== ENCOUNTER 2020-09-18 06:45 | Day surgery (SDC) | payer MEDICARE, BC ==
[~2020-09-18] VITALS: Ht 152 cm; Wt 73.6 kg
[~2020-09-18 06:45] MED LIST changes: +AMLO-250 PO
[2020-09-18] MEDS ORDERED: MOXIFLOXACIN OPHTH SOLN 5 MG/ML 0.3 ML SYRINGE OP ONE (07:00)
[2020-09-18] MEDS ORDERED: POVIDONE (BETADINE) OPHTH SOLN 5% 30 ML OP ONE (07:00)
[2020-09-18] MEDS ORDERED: LIDOCAINE PF 1% 2 ML VIAL IR PRN (07:00)
[2020-09-18] MEDS ORDERED: TIMOLOL MALEATE 0.5% 5 ML (TIMOPTIC) BTL OU PRN (07:00)
[2020-09-18] MEDS: TETRACAINE 0.5% OPHTH SOLN 4 ML BTL (SINGLE DOSE ONLY) OU PRN ×4 (07:06→07:24)
[2020-09-18] MEDS: PHENYLEPHRINE 10% OPHTH (NEO-SYN) 5 ML BTL OU SCH ×3 (07:14→07:24)
[2020-09-18] MEDS: TROPICAMIDE 1% OPH SOLN (MYDRIACYL) 15 ML BTL OP SCH ×3 (07:14→07:24)
[2020-09-18 07:15] VITALS: BP 155/64
[2020-09-18] MEDS ORDERED: MIDAZOLAM 2 MG/2 ML (VERSED) VIAL ONE (07:59)
--- NOTE | 2020-09-18 08:10 | Ophthalmologist Pre-Op Note ---
Pre-Operative Progress Note H&P Reviewed The H&P was reviewed, patient examined and no changes noted. Date H&P Reviewed: Sep 18, 2020 Time H&P Reviewed: 08:10 Pre-Op Dx Cataract, Right Eye LORI WALKER MD Sep 18, 2020 08:10
[2020-09-18] MEDS ORDERED: acetaZOLAMIDE ER 500 MG CAP (DIAMOX SEQUELS) PO ONE (08:30)
--- NOTE | 2020-09-18 08:32 | Ophthalmology Operative Report ---
Cataract removal/placement IOL PREOPERATIVE DIAGNOSIS: Cataract Right Eye POSTOPERATIVE DIAGNOSIS: Cataract Right Eye PROCEDURE: Cataract removal and placement of posterior chamber implant, right eye SURGEON: Anurag Walker ANESTHESIA: Topical with sedation COMPLICATIONS: None ESTIMATED BLOOD LOSS: Minimal DESCRIPTION OF PROCEDURE: After proper informed consent was obtained, the patient, a 75 female, was taken to the Operating Room and the right eye was anesthetized with tetracaine. The right eye was then prepped and draped in the usual manner. A wire lid speculum was placed. A paracentesis was made at the left hand position. Preservative free lidocaine was injected into the anterior chamber followed by viscoelastic. A clear corneal incision was made in the temporal position. A capsulorrhexis was preformed and the central nuclear and cortical material were removed. The posterior capsule was polished and Daniel 20.0 AU00T0 IOL was placed into the capsular bag. The residual viscoelastic was aspirated and balanced saline solution was injected into the anterior chamber. Moxifloxacin was injected into the anterior chamber. The wound was checked and found to be water tight. The patient tolerated the procedure well without complications. ANURAG WALKER MD Sep 18, 2020 08:32
[2020-09-18 08:44] VITALS: BP 151/60
--- NOTE | 2020-09-18 13:13 | Anesthesia-General Post-Op ---
MAC Patient Condition Mental Status/LOC: Same as Preop Cardiovascular: Satisfactory Nausea/Vomiting: Absent Respiratory: Satisfactory Pain: Controlled Complications: Absent Post Op Complications Complications None Follow Up Care/Instructions Patient Instructions None needed. Anesthesiology Discharge Order Discharge Order Patient was doing well after the procedure, no complaints, stable vital signs, no apparent adverse anesthesia problems. THEO MEEK DO Sep 18, 2020 13:13
== END 2020-09-18 08:46 ==
LOC: SDC 06:45
PROVIDERS: ATTEND Specialist
DX: E11.36 Type 2 diabetes mellitus with diabetic cataract (principal); H25.11 Age-related nuclear cataract, right eye; I10 Essential (primary) hypertension; H25.10 Age-related nuclear cataract, unspecified eye; E78.5 Hyperlipidemia, unspecified; E11.9 Type 2 diabetes mellitus without complications; E03.9 Hypothyroidism, unspecified; Z79.82 Long term (current) use of aspirin; Z79.899 Other long term (current) drug therapy; Z79.84 Long term (current) use of oral hypoglycemic drugs; Z87.891 Personal history of nicotine dependence; Z90.89 Acquired absence of other organs; Z95.1 Presence of aortocoronary bypass graft; Z90.710 Acquired absence of both cervix and uterus; Z83.3 Family history of diabetes mellitus; Z80.9 Family history of malignant neoplasm, unspecified
CPT/HCPCS: 66984; V2632

== ENCOUNTER 2020-10-09 06:30 | Day surgery (SDC) | payer MEDICARE, BC ==
[~2020-10-09] VITALS: Ht 152 cm; Wt 73.6 kg
[2020-10-09] MEDS: TETRACAINE 0.5% OPHTH SOLN 4 ML BTL (SINGLE DOSE ONLY) OU PRN ×4 (06:58→07:12)
[2020-10-09 07:00] VITALS: BP 163/70
[2020-10-09] MEDS ORDERED: TIMOLOL MALEATE 0.5% 5 ML (TIMOPTIC) BTL OU PRN (07:00)
[2020-10-09] MEDS ORDERED: POVIDONE (BETADINE) OPHTH SOLN 5% 30 ML OP ONE (07:00)
[2020-10-09] MEDS ORDERED: MOXIFLOXACIN OPHTH SOLN 5 MG/ML 0.3 ML SYRINGE OP ONE (07:00)
[2020-10-09] MEDS ORDERED: LIDOCAINE PF 1% 2 ML VIAL IR PRN (07:00)
[2020-10-09] MEDS: PHENYLEPHRINE 10% OPHTH (NEO-SYN) 5 ML BTL OU SCH ×3 (07:06→07:12)
[2020-10-09] MEDS: TROPICAMIDE 1% OPH SOLN (MYDRIACYL) 15 ML BTL OP SCH ×3 (07:06→07:13)
[2020-10-09] MEDS ORDERED: MIDAZOLAM 2 MG/2 ML (VERSED) VIAL ONE (07:58)
--- NOTE | 2020-10-09 08:15 | Ophthalmologist Pre-Op Note ---
Pre-Operative Progress Note H&P Reviewed The H&P was reviewed, patient examined and no changes noted. Date H&P Reviewed: Oct 09, 2020 Time H&P Reviewed: 08:15 Pre-Op Dx Cataract, Left Eye LORI WALKER MD Oct 09, 2020 08:15
[2020-10-09] MEDS ORDERED: acetaZOLAMIDE ER 500 MG CAP (DIAMOX SEQUELS) PO ONE (08:30)
--- NOTE | 2020-10-09 08:37 | Ophthalmology Operative Report ---
Cataract removal/placement IOL PREOPERATIVE DIAGNOSIS: Cataract Left Eye POSTOPERATIVE DIAGNOSIS: Cataract Left Eye PROCEDURE: Cataract removal and placement of posterior chamber implant, left eye SURGEON: Anurag Walker ANESTHESIA: Topical with sedation COMPLICATIONS: None ESTIMATED BLOOD LOSS: Minimal DESCRIPTION OF PROCEDURE: After proper informed consent was obtained, the patient, a 75 female, was taken to the Operating Room and the left eye was anesthetized with tetracaine. The left eye was then prepped and draped in the usual manner. A wire lid speculum was placed. A paracentesis was made at the left hand position. Preservative free lidocaine was injected into the anterior chamber followed by viscoelastic. A clear corneal incision was made in the temporal position. A capsulorrhexis was preformed and the central nuclear and cortical material were removed. The posterior capsule was polished and an Daniel 19.5 AU00T0 was placed into the capsular bag. The residual viscoelastic was aspirated and balanced saline solution was injected into the anterior chamber. Moxifloxacin was injected into the anterior chamber. The wound was checked and found to be water tight. The patient tolerated the procedure well without complications. ANURAG WALKER MD Oct 09, 2020 08:37
[2020-10-09 08:50] VITALS: BP 132/56
--- NOTE | 2020-10-09 12:46 | Anesthesia-General Post-Op ---
MAC Patient Condition Mental Status/LOC: Same as Preop Cardiovascular: Satisfactory Nausea/Vomiting: Absent Respiratory: Satisfactory Pain: Controlled Complications: Absent Post Op Complications Complications None Follow Up Care/Instructions Patient Instructions None needed. Anesthesiology Discharge Order Discharge Order Patient is doing well, no complaints, stable vital signs, no apparent adverse anesthesia problems. No complications reported per nursing. SHYAM TURNER CRNA Oct 09, 2020 12:46
== END 2020-10-09 08:50 ==
LOC: SDC 06:30
PROVIDERS: ATTEND Specialist
DX: E11.36 Type 2 diabetes mellitus with diabetic cataract (principal); H25.12 Age-related nuclear cataract, left eye; I10 Essential (primary) hypertension; I25.10 Atherosclerotic heart disease of native coronary artery without angina pectoris; Z87.891 Personal history of nicotine dependence; Z91.048 Other nonmedicinal substance allergy status; Z88.5 Allergy status to narcotic agent; Z79.899 Other long term (current) drug therapy; Z79.82 Long term (current) use of aspirin; Z79.4 Long term (current) use of insulin
CPT/HCPCS: 66984; V2632

== ENCOUNTER → 2021-09-16 | Outpatient (CLI) | payer MEDICARE, BC ==
[~2021-09-16] MED LIST changes: +POTA-179 PO; -POTA20TA15 PO; +TIZA-186 PO; -TIZA4TAB4 PO
--- NOTE | 2021-09-17 08:24 | Diagnostic Imaging Report ---
INDICATION: Routine screening. Comparison is made with prior mammogram from 08/14/2020 and 09/27/2018. 2-D and 3-D bilateral screening mammography was performed with CAD. Both breasts are primarily involutional. Benign-appearing nodule retroareolar left breast appears stable. There are scattered benign calcifications throughout both breasts. No spiculated mass or malignant-appearing microcalcifications are seen. Axillae are unremarkable. IMPRESSION: No mammographic features suspicious for malignancy are identified. ACR BI-RADS Category 2: Benign findings. Result letter will be mailed to the patient. Note: At least 10% of breast cancer is not imaged by mammography. BI-RADS Category 2 Dictated by: Dictated on workstation # [id number]
== END ==
LOC: RAD 14:37
PROVIDERS: ATTEND Student in an Organized Health Care Education/Training Program
DX: Z12.31 Encounter for screening mammogram for malignant neoplasm of breast (principal)
CPT/HCPCS: 77063; 77067

== ENCOUNTER → 2022-09-19 | Outpatient (CLI) | payer MEDICARE, BC ==
[~2022-09-19] MED LIST changes: -LOSA100T57 PO; +LOSA100T58 PO
--- NOTE | 2022-09-19 11:14 | Diagnostic Imaging Report ---
Indication: Routine screening. Comparison is made with prior mammogram from 09/16/2021 and 08/14/2020. 2-D and 3-D bilateral screening mammography was performed with CAD. The current study was also evaluated with a Computer Aided Detection (CAD) system. Scattered fibroglandular densities are identified bilaterally. A benign nodule in the left breast is stable. There are scattered benign calcifications bilaterally. No spiculated mass or malignant-appearing microcalcifications are identified. Axillae are unremarkable. IMPRESSION: BI-RADS Category 2 No mammographic features suspicious for malignancy are identified. ACR BI-RADS Category 2: Benign findings. Result letter will be mailed to the patient. Note: At least 10% of breast cancer is not imaged by mammography. Dictated by: Dictated on workstation # [id number]
== END ==
LOC: RAD 08:18
PROVIDERS: ATTEND Nurse Practitioner Family
DX: Z12.31 Encounter for screening mammogram for malignant neoplasm of breast (principal)
CPT/HCPCS: 77063; 77067